=== PATIENT | male | born 1935 | race African-American/Black ===

== ENCOUNTER 2023-10-16 20:15 | Inpatient (IN) | payer OTHER, SELFPAY ==
[2023-10-16] VITALS (18 sets, daily range): BP systolic 95–147; BP diastolic 47–97; BMI 28.5
[2023-10-16 17:57] LABS: Glucose - Point of Care 225 mg/dl (70-99)
--- NOTE | 2023-10-16 18:17 | ED.GENMED ---
History of Present Illness
<Ayush Briggs DO - Last Filed: 10/16/23 19:35>
General
Chief Complaint: Weakness
Time Seen by Provider: 10/16/23 18:04
Travel History
Have you had any contact with someone who has COVID-19?: No
Do you have any symptoms of coronavirus? Fever > 100 degrees, chills, cough, shortness of breath, sore throat, loss of taste or smell, muscle aches, or headache?: No
<Bindu Mandel, FLEET OPERATIONS MANAGER - Last Filed: 10/18/23 09:26>
General
Source: patient and custodial records
Exam Limitations: none
Nursing documentation reviewed up to this point in time: agreed with
History of Present Illness
History of Present Illness:
87-year-old male from [facility] with history of quadruple bypass 2003, IDDM, PVD, states earlier today he was having the dry heaves, he finally vomited, he presents stating he feels 'so weak.' He denies chest pain or trouble breathing. He
denies nausea at this time. He had a loose stool. He denies any new local weakness in his extremities.
Patient is nonambulatory, wheelchair-bound at baseline.
Past History
<Bindu Mandel, FLEET OPERATIONS MANAGER - Last Filed: 10/18/23 09:26>
Past History
ED Past Medical History: CAD, GERD, HTN, IDDM, [place] and Psychiatric (depression)
ED Past Surgical History: Cardiac (quadruple bypass 2003 at [facility])
Social History
Tobacco: Non-smoker
Alcohol: None
Living: custodial
Review of Systems
<Bindu Mandel, FLEET OPERATIONS MANAGER - Last Filed: 10/18/23 09:26>
Review of Systems
Allergies reviewed?: Yes
All Other Systems: ROS reviewed and negative except as documented in HPI and ROS
Constitutional: Reports fatigue; Denies fever
Respiratory: Denies trouble breathing
Cardiac: Denies chest pain, diaphoresis, palpitations or syncope
ABD/GI: Reports nausea and vomiting; Denies abdominal pain, diarrhea, bloody stools or black stools
: Denies dysuria or difficulty voiding
Musculoskeletal: Denies edema
Skin: Reports no symptoms
Neurological: Reports headache (yesterday and today) and weakness (generalized)
Phy Exam
<Bindu Mandel, FLEET OPERATIONS MANAGER - Last Filed: 10/18/23 09:26>
Physical Exam
Physical Exam:
GENERAL: No acute distress. A&Ox3.
CONSTITUTIONAL: Afebrile.
EYES: PERRL, conjunctivae normal
Neck: Supple
ENMT: moist mucus membranes, Pharynx nl
RESPIRATORY: Regular respirations, nonlabored, lungs clear.
CARDIOVASCULAR: Regular rate and rhythm, no murmurs, no rubs.
GI: Soft, nontender, normal BS
MUSCULOSKELETAL: Moves with ease. Well perfused. No edema
SKIN: Warm, dry, pink
PSYCH: Normal mood and affect. Well kept, interactive and appropriate
NEUROLOGIC: Awake, alert and oriented. General weakness in extremities (chronic). No focal neurological deficits
Course
<Ayush Briggs, DO - Last Filed: 10/16/23 19:35>
Orders/Labs/Results
Orders:
Orders
10/16/23 Dinner
Clear Liquid
At Your Request: Full Participation
Does patient need a safe tray?: No
10/16/23 17:54
EKG [Electrocardiogram (*1)] Urgent
Reason for Study: Fatigue / Weakness
10/16/23 18:12
CBC/With Diff [Complete Blood Count/With Diff] Urgent
10/16/23 18:17
CR Chest Portable - 1 View Urgent
Comment:
Reason For Exam: vomiting
Reason Study Needs to be Portable: Patient Unstable
10/16/23 18:18
0.9% Sodium Chloride 1000 ml [Nss] 1,000 ml IV BOLUS
Ondansetron Injectable [Zofran] 4 mg IV NOW STA
10/16/23 18:23
0.9% Sodium Chloride 250 ml [Nss] 250 ml IV BOLUS
0.9% Sodium Chloride 500 ml [Nss] 500 ml IV BOLUS
0.9% Sodium Chloride 500 ml [Nss] 500 ml IV BOLUS
10/16/23 18:34
EKG [Electrocardiogram (*1)] Urgent
Reason for Study: Chest Pain
10/16/23 18:48
Comprehensive Metabolic Panel Urgent
Troponin I Urgent
10/16/23 19:09
Prothrombin Time Urgent
10/16/23 19:43
Aspirin Chewable [Low Strength Aspirin] 324 mg .ROUTE .[facility]
10/16/23 20:06
Admit/Transfer Patient As Directed
Co-Sign Provider:
Level of Care: Inpatient admission
Assign to:: Telemetry
Physician / Group: jeff
Diagnosis: gastroenteritis
Reason for Telemetry: Arrhythmia
Date to Stop Telemetry: 10/19/23
Time to Stop Telemetry: 11:00
Reason for Hospitalization: gastroenteritis
Expected length of stay greater than two midnights?: Yes
ELOS- Estimated Length of Stay in days: 2
I certify the patient meets the requirements for IP care: Yes
Code Status As Directed
Resuscitation Status: Full Code
10/16/23 20:11
CDIFF [C difficile Antigen & Toxins] Urgent
KEAGAN Source: Feces/Stool
Specimen Description:
Date Specimen was Collected: 10/17/23
Time Specimen was Collected: 05:04
Norovirus by PCR Urgent
KEAGAN Source: Feces/Stool
Specimen Description:
Date Specimen was Collected: 10/17/23
Time Specimen was Collected: 05:04
10/16/23 20:22
Blood Culture Q30M
KEAGAN Source: Blood/Venous
Specimen Description:
Blood Culture Q30M
KEAGAN Source: Blood/Venous
Specimen Description:
10/16/23 20:23
Urinalysis Urgent
Date Specimen was Collected: 10/16/23
Time Specimen was Collected: 20:20
Urine Culture Urgent
KEAGAN Source: Urine
Specimen Description:
Obtained by: Straight Cath
Date Specimen was Collected: 10/16/23
Time Specimen was Collected: 20:20
10/16/23 21:44
Troponin I Q6H
Acetaminophen [Tylenol] 650 mg PO Q4HPRN PRN
Dextrose 50%-Water [Dextrose 50% Syringe] 12.5 grams IV [id number] PRN
Glucagon [GlucaGen] 1 mg IM PRN PRN
Magnesium Hydroxide [Milk of Magnesia] 30 ml PO DAILY PRN
10/16/23 21:44
Activity As Directed
Activity Level: As Tolerated
Bedside Glucose Monitoring As Directed
Frequency: AC&HS
Additional Instructions:: Change to q6h if pt on TPN, tube feeding or not eating
Bladder Scan As Directed
Follow Bladder Retention/Intermittent Cath Algorithm?: Yes
PRN if no void in __ hours: 6
Frequency: Per Retention Algorithm
If Bladder Scan Result >: 400
then:: Straight cath
Straight Cath As Directed
Frequency: Per Retention Algorithm
Additional Instructions: straight cath as needed per acute urinary retention algorithm for 24 hrs
Additional Instructions: for bladder scan greater than 400 mL
Vital Signs As Directed
Frequency: Per unit guidelines
DX Deep Vein Thrombosis Video Routine
10/16/23 22:00
Atorvastatin [Lipitor] 80 mg PO HS
Tamsulosin [Flomax] 0.4 mg PO HS
10/17/23 07:11
Complete Blood Count/With Diff IN AM
Comprehensive Metabolic Panel IN AM
Glycohemoglobin (HgbA1c) IN AM
Troponin I Q6H
10/17/23 07:30
Insulin Aspart Corrective Low [Novolog Flexpen-Low Resistance] See Protocol SC AC
10/17/23 08:00
Aspirin 325 mg PO DAILY
Aspirin Chewable [Low Strength Aspirin] 81 mg PO DAILY
Carvedilol [Coreg] 12.5 mg PO BID
Cilostazol [Pletal] 100 mg PO BID
Gabapentin [Neurontin] 300 mg PO BID
Heparin 5,000 units SC Q12
Insulin Aspart/Asp Protamine [Novolog Mix 70/30 Flexpen] 22 units SC BID
Pantoprazole [Protonix] 40 mg PO DAILY
10/19/23 11:00
DC Protocol for Telemetry ONCE
Abnormal Lab Results
10/16/23 10/16/23 10/16/23
17:56 18:12 18:48
RBC 4.10 L 10^6/uL
(4.70-6.10)
Hgb 11.0 L g/dL
(13.0-18.0)
Hct 32.0 L %
(39.0-52.0)
MCV 78.0 L fL
(80.0-94.0)
MCH 26.8 L pg
(27.0-31.0)
RDW 15.4 H %
(11.5-14.5)
Abs Immat Gran (auto) 0.1 H 10^3/uL
(0-0.05)
Absolute Neuts (auto) 8.9 H 10^3/uL
(1.4-6.5)
Absolute Lymphs (auto) 1.0 L 10^3/uL
(1.2-3.4)
Absolute Monos (auto) 0.8 H 10^3/uL
(0.1-0.6)
Immature Gran % 0.6 H %
(0-0.5)
Neutrophils % 82.2 H %
(42.2-75.2)
Lymphocytes % 9.6 L %
(20.5-51.1)
PT
Chloride 111 H mmol/L
(98-107)
Carbon Dioxide 18 L mmol/L
(22-30)
BUN 25 H mg/dl
(9-20)
Creatinine 1.4 H mg/dL
(0.7-1.3)
Glucose 193 H mg/dl
(70-99)
Total Bilirubin 1.4 H mg/dl
(0.2-1.3)
AST 109 H U/L
(17-59)
ALT 94 H U/L
(0-50)
Albumin 3.1 L g/dl
(3.5-5.0)
POC Glucose 225 H mg/dl
(70-99)
10/16/23
19:09
RBC
Hgb
Hct
MCV
MCH
RDW
Abs Immat Gran (auto)
Absolute Neuts (auto)
Absolute Lymphs (auto)
Absolute Monos (auto)
Immature Gran %
Neutrophils %
Lymphocytes %
PT 16.7 H Sec
(11.4-14.6)
Chloride
Carbon Dioxide
BUN
Creatinine
Glucose
Total Bilirubin
AST
ALT
Albumin
POC Glucose
10/16/23 18:12
10/16/23 18:48
Vital Signs
Initial and Last Documented VS:
Initial Vital Signs
Pulse Resp Pulse Ox
82 18 97
10/16/23 17:56 10/16/23 17:56 10/16/23 17:56
Last Documented Vital Signs
Temp Pulse Resp BP Pulse Ox
98.2 F 88 18 155/78 99
10/18/23 07:45 10/18/23 07:50 10/18/23 07:45 10/18/23 07:50 10/18/23 07:45
<Bindu Mandel FLEET OPERATIONS MANAGER - Last Filed: 10/18/23 09:26>
Orders/Labs/Results
Orders:
Orders
10/16/23 Dinner
Clear Liquid
At Your Request: Full Participation
Does patient need a safe tray?: No
10/16/23 17:54
EKG [Electrocardiogram (*1)] Urgent
Reason for Study: Fatigue / Weakness
10/16/23 18:12
CBC/With Diff [Complete Blood Count/With Diff] Urgent
10/16/23 18:17
CR Chest Portable - 1 View Urgent
Comment:
Reason For Exam: vomiting
Reason Study Needs to be Portable: Patient Unstable
10/16/23 18:18
0.9% Sodium Chloride 1000 ml [Nss] 1,000 ml IV BOLUS
Ondansetron Injectable [Zofran] 4 mg IV NOW STA
10/16/23 18:23
0.9% Sodium Chloride 250 ml [Nss] 250 ml IV BOLUS
0.9% Sodium Chloride 500 ml [Nss] 500 ml IV BOLUS
0.9% Sodium Chloride 500 ml [Nss] 500 ml IV BOLUS
10/16/23 18:34
EKG [Electrocardiogram (*1)] Urgent
Reason for Study: Chest Pain
10/16/23 18:48
Comprehensive Metabolic Panel Urgent
Troponin I Urgent
10/16/23 19:09
Prothrombin Time Urgent
10/16/23 19:43
Aspirin Chewable [Low Strength Aspirin] 324 mg .ROUTE .[facility]
10/16/23 20:06
Admit/Transfer Patient As Directed
Co-Sign Provider:
Level of Care: Inpatient admission
Assign to:: Telemetry
Physician / Group: jeff
Diagnosis: gastroenteritis
Reason for Telemetry: Arrhythmia
Date to Stop Telemetry: 10/19/23
Time to Stop Telemetry: 11:00
Reason for Hospitalization: gastroenteritis
Expected length of stay greater than two midnights?: Yes
ELOS- Estimated Length of Stay in days: 2
I certify the patient meets the requirements for IP care: Yes
Code Status As Directed
Resuscitation Status: Full Code
10/16/23 20:11
CDIFF [C difficile Antigen & Toxins] Urgent
KEAGAN Source: Feces/Stool
Specimen Description:
Date Specimen was Collected: 10/17/23
Time Specimen was Collected: 05:04
Norovirus by PCR Urgent
KEAGAN Source: Feces/Stool
Specimen Description:
Date Specimen was Collected: 10/17/23
Time Specimen was Collected: 05:04
10/16/23 20:22
Blood Culture Q30M
KEAGAN Source: Blood/Venous
Specimen Description:
Blood Culture Q30M
KEAGAN Source: Blood/Venous
Specimen Description:
10/16/23 20:23
Urinalysis Urgent
Date Specimen was Collected: 10/16/23
Time Specimen was Collected: 20:20
Urine Culture Urgent
KEAGAN Source: Urine
Specimen Description:
Obtained by: Straight Cath
Date Specimen was Collected: 10/16/23
Time Specimen was Collected: 20:20
10/16/23 21:44
Troponin I Q6H
Acetaminophen [Tylenol] 650 mg PO Q4HPRN PRN
Dextrose 50%-Water [Dextrose 50% Syringe] 12.5 grams IV [id number] PRN
Glucagon [GlucaGen] 1 mg IM PRN PRN
Magnesium Hydroxide [Milk of Magnesia] 30 ml PO DAILY PRN
10/16/23 21:44
Activity As Directed
Activity Level: As Tolerated
Bedside Glucose Monitoring As Directed
Frequency: AC&HS
Additional Instructions:: Change to q6h if pt on TPN, tube feeding or not eating
Bladder Scan As Directed
Follow Bladder Retention/Intermittent Cath Algorithm?: Yes
PRN if no void in __ hours: 6
Frequency: Per Retention Algorithm
If Bladder Scan Result >: 400
then:: Straight cath
Straight Cath As Directed
Frequency: Per Retention Algorithm
Additional Instructions: straight cath as needed per acute urinary retention algorithm for 24 hrs
Additional Instructions: for bladder scan greater than 400 mL
Vital Signs As Directed
Frequency: Per unit guidelines
DX Deep Vein Thrombosis Video Routine
10/16/23 22:00
Atorvastatin [Lipitor] 80 mg PO HS
Tamsulosin [Flomax] 0.4 mg PO HS
10/17/23 07:11
Complete Blood Count/With Diff IN AM
Comprehensive Metabolic Panel IN AM
Glycohemoglobin (HgbA1c) IN AM
Troponin I Q6H
10/17/23 07:30
Insulin Aspart Corrective Low [Novolog Flexpen-Low Resistance] See Protocol SC AC
10/17/23 08:00
Aspirin 325 mg PO DAILY
Aspirin Chewable [Low Strength Aspirin] 81 mg PO DAILY
Carvedilol [Coreg] 12.5 mg PO BID
Cilostazol [Pletal] 100 mg PO BID
Gabapentin [Neurontin] 300 mg PO BID
Heparin 5,000 units SC Q12
Insulin Aspart/Asp Protamine [Novolog Mix 70/30 Flexpen] 22 units SC BID
Pantoprazole [Protonix] 40 mg PO DAILY
10/19/23 11:00
DC Protocol for Telemetry ONCE
Abnormal Lab Results
10/16/23 10/16/23 10/16/23
17:56 18:12 18:48
RBC 4.10 L 10^6/uL
(4.70-6.10)
Hgb 11.0 L g/dL
(13.0-18.0)
Hct 32.0 L %
(39.0-52.0)
MCV 78.0 L fL
(80.0-94.0)
MCH 26.8 L pg
(27.0-31.0)
RDW 15.4 H %
(11.5-14.5)
Abs Immat Gran (auto) 0.1 H 10^3/uL
(0-0.05)
Absolute Neuts (auto) 8.9 H 10^3/uL
(1.4-6.5)
Absolute Lymphs (auto) 1.0 L 10^3/uL
(1.2-3.4)
Absolute Monos (auto) 0.8 H 10^3/uL
(0.1-0.6)
Immature Gran % 0.6 H %
(0-0.5)
Neutrophils % 82.2 H %
(42.2-75.2)
Lymphocytes % 9.6 L %
(20.5-51.1)
PT
Chloride 111 H mmol/L
(98-107)
Carbon Dioxide 18 L mmol/L
(22-30)
BUN 25 H mg/dl
(9-20)
Creatinine 1.4 H mg/dL
(0.7-1.3)
Glucose 193 H mg/dl
(70-99)
Total Bilirubin 1.4 H mg/dl
(0.2-1.3)
AST 109 H U/L
(17-59)
ALT 94 H U/L
(0-50)
Albumin 3.1 L g/dl
(3.5-5.0)
POC Glucose 225 H mg/dl
(70-99)
10/16/23
19:09
RBC
Hgb
Hct
MCV
MCH
RDW
Abs Immat Gran (auto)
Absolute Neuts (auto)
Absolute Lymphs (auto)
Absolute Monos (auto)
Immature Gran %
Neutrophils %
Lymphocytes %
PT 16.7 H Sec
(11.4-14.6)
Chloride
Carbon Dioxide
BUN
Creatinine
Glucose
Total Bilirubin
AST
ALT
Albumin
POC Glucose
10/16/23 18:12
10/16/23 18:48
Vital Signs
Initial and Last Documented VS:
Initial Vital Signs
Pulse Resp Pulse Ox
82 18 97
10/16/23 17:56 10/16/23 17:56 10/16/23 17:56
Last Documented Vital Signs
Temp Pulse Resp BP Pulse Ox
98.2 F 88 18 155/78 99
10/18/23 07:45 10/18/23 07:50 10/18/23 07:45 10/18/23 07:50 10/18/23 07:45
<Bindu Mandel, FLEET OPERATIONS MANAGER - Last Filed: 10/18/23 09:26>
MDM/Problems Addressed
Differential Diagnosis Includes:
TX, blocked bypass graft
MDM/Problems Addressed:
87-year-old male with history of quadruple bypass 2004, IDDM, PVD, states earlier today he was having the dry heaves, he finally vomited, he presents stating he feels 'so weak.' He denies chest pain or trouble breathing. He denies nausea at this
time. He had a loose stool. He denies any new local weakness in his extremities.
Patient is nonambulatory, wheelchair-bound at baseline.
EKG: Sinus with 1st degree block, abnormal ST elevation in anterior/inferior leads
Case discussed with Dr. Briggs who examined pt
Case discussed with Dr. Latham
Pt is Full Code
VSS but soft BP 102 systolic. IVFs infusing.
CBC with no clinically significant abnormality
CMP: BUN/creat 25/1.4 (nothing to compare) Mild elevation liver enzymes Glucose 225
Troponin: WNL.
EKG # 2 NSR, improved after IVFs and normalization of BP. Initial abnormality likely due to dehydration, hypotension
Plan: Admit: General weakness, trend troponin, check urine, hydrate
Hospitalist notified of admission
Chronic conditions affecting care: DM, HTN, CAD and PVD
<Ayush Briggs, - Last Filed: 10/16/23 19:35>
*Radiology
Radiology exam reviewed: radiology read reviewed
*Pulse Oximetry
Patient hypoxic: no
*Kettle Skimmer Interpretation
Rate: normal
Interpretation: normal
Heart Rate: 70
Rhythm: sinus
*Critical Care Note
Total Time (30-74mins, 75-104mins- exclusive of procedures): 44
ED Attending Note
<Ayush Briggs, - Last Filed: 10/16/23 19:35>
ED Attending Note
Patient seen and examined by attending physician: Yes
I performed the substantive portion of visit, reviewed & personally made and approve the management plan that is documented in note by myself or ANA.: Yes
ED Attending Note:
Seen with FLEET OPERATIONS MANAGER examined independently 79-year-old male with CAD status post bypass surgery 20 years ago presents with nausea dry heaves low blood pressure EKG shows looks to me to be inferior ST changes, patient denies any chest pain, he lives in a
custodial, gets around in a wheelchair he is wearing a depends type garment does not appear to be demented, will send labs start IV fluids this could be in for imi did review with interventional cardiology, we will get creatinine, troponin
hemoglobin try to discern patient and family's wishes
On reevaluation, after fluid and aspirin he states he is feeling better his blood pressures normalized as did his EKG
Update, patient feeling well now blood pressure in the 140s, did have some arm pain earlier per the son of though he has neuropathy he gets arm pain, son also concerned he could have UTIs with blood with trouble urinating, troponin hemoglobin
creatinine noted, repeat EKG shows no ST segment elevation, again not a candidate for urgent cardiac cath despite normalization of his symptoms, also decreased functional status and normalization of his EKG
-
Portions of this chart may have been created with voice recognition software.� Occasional wrong word or��sound alike� substitutions may have occurred due to the inherent limitations of voice recognition software.
Discharge Plan
Departure
Patient Disposition: Admit
Date of Disposition: 10/16/23
Time of Disposition: 20:02
Admit to: Telemetry
Presentation/result/management discussed w/ accepting MD/DO: Hospitalist
Condition: Good
Discharge Problem:
Generalized weakness
Interventions
Interventions:
*Risk Screen - Suicide Last Done: 10/16/23 17:57
*General Assessment Last Done: 10/16/23 17:57
*Neglect/Abuse Screening Last Done: 10/16/23 17:57
*ED COVID-19 Vaccine History Last Done: 10/16/23 19:12
*Nursing Disposition Last Done: 10/16/23 21:50
ED- Cardiac Assessment Last Done: 10/16/23 19:12
ED- Neurological Assessment Last Done: 10/16/23 19:12
ED- Pulmonary Assessment Last Done: 10/16/23 19:12
Discharge Date and Time
Discharge Date/Time: 10/16/23 21:50
[2023-10-16 18:21] LABS: % Basophils 0.1 % (0-2); % Eosinophils 0.1 % (0-6); % Immature Granulocytes 0.6 % (0-0.5); % Lymphocytes 9.6 % (20.5-51.1); % Monocytes 7.4 % (1.7-9.3); % Neutrophils 82.2 % (42.2-75.2); Absolute Immature Granulocytes 0.1 10^3/uL (0-0.05); Absolute Monocytes 0.8 10^3/uL (0.1-0.6); Absolute Neutrophils 8.9 10^3/uL (1.4-6.5); Mean Corp Hgb Conc. 34.4 g/dL (33.0-37.0); Mean Corpuscular Hgb 26.8 pg (27.0-31.0); Mean Platelet Volume 10.2 fL (7.4-10.4); Nucleated Red Blood Cells % 0 % (-); Platelet Count 313 10^3/uL (130-400); Red Cell Dist. Width 15.4 % (11.5-14.5); White Blood Cell Count 10.8 10^3/uL (4.8-10.8)
[2023-10-16] MEDS: NSS 1000 IV ×2 (18:53→22:27)
[2023-10-16 19:19] LABS: ALT (SGPT) 94 U/L (0-50); AST (SGOT) 109 U/L (17-59); Albumin 3.1 g/dl (3.5-5.0); Alkaline Phosphatase 105 U/L (38-126); Blood Urea Nitrogen 25 mg/dl (9-20); Carbon Dioxide 18 mmol/L (22-30); Chloride 111 mmol/L (98-107); Estimated Creatinine Clearance 40 ml/min; Glucose 193 mg/dl (70-99); Potassium 3.7 mmol/L (3.5-5.1); Sodium 136 mmol/L (135-145); Total Bilirubin 1.4 mg/dl (0.2-1.3); Total Protein 6.9 g/dl (6.3-8.2); Troponin I 0.021 ng/ml; eGFR 48.34
[2023-10-16 19:25] LABS: INR 1.37; PT 16.7 Sec (11.4-14.6)
--- NOTE | 2023-10-16 20:12 | HPS.HSE ---
Addendum entered and electronically signed by Gideon Salmon MD 10/16/23 22:19:
Started ceftriaxone for UTI.
Original Note:
Family Physician
-
Family Physician: Antonino Dodson
Chief Complaint
-
vomiting, diarrhea
History of Present Illness
87-year-old male past medical history of CAD status post quadruple bypass in 2003, peripheral vascular disease, hypertension, GERD, diabetes, diabetic neuropathy, neurogenic bladder, depression, presenting with dry heaving with some vomiting and
severe diarrhea starting today. He denies any abdominal pain. He did have chills and temperature of 99 over the past few days. He denies eating any restaurant food or outside food. He denies any chest pain or shortness of breath.
Patient has neurogenic bladder and sometimes has urge to go to the bathroom sometimes. His son tried putting a condom catheter on him a few days ago to help with urinary collection. The condom catheter was on for only 6 hours but afterwards
patient developed penile pain and subsequent lesions on the penis with mild bleeding. Patient has been applying zinc cream. Condom catheter was subsequently never attempted again. Son also noted some possibly cloudy and dark urine. Patient
denies any pain with urination.
Medical History
Past Medical History
Past Medical History: Reports Other ( CAD status post quadruple bypass in 2003, peripheral vascular disease, hypertension, GERD, diabetes, diabetic neuropathy, neurogenic bladder, depression)
Past Surgical History: Reports None
Social History
Tobacco: Non-smoker
Alcohol: None
Drug: None
Family History
Family History: Not pertinent
Allergies / Home Medications
Allergies reflects when Allergies were last updated in [facility].
Home Medications with original date entered in [facility]
Allergy/Medication List:
Allergies
Allergy/AdvReac Type Severity Reaction Status Date / Time
Penicillins Allergy Hives Verified 10/16/23 17:56
Home Medications
acetaminophen 325 mg tablet 650 mg PO Q4H PRN mild pain/temp>100f 10/16/23
aspirin 81 mg capsule 81 mg PO DAILY 10/16/23
phopcha-ywobvilczqlgy-utbxmhin 250 mg-250 mg-65 mg tablet (Excedrin Extra Strength) 2 tab PO Q6H PRN mild pain 10/16/23
atorvastatin 80 mg tablet 80 mg PO HS 10/16/23
bisacodyl 10 mg rectal suppository (Dulcolax (bisacodyl)) 10 mg MT DAILY PRN if mom is ineffective after 24hrs 10/16/23
carvedilol 12.5 mg tablet 12.5 mg PO BID 10/16/23
cilostazol 100 mg tablet 100 mg PO BID 10/16/23
colesevelam 625 mg tablet 1,875 mg PO BID 10/16/23
gabapentin 600 mg tablet 600 mg PO BID 10/16/23
insulin aspar prot-insulin aspart 100 unit/mL (70-30) subcutaneous pen (Novolog Mix 70-30FlexPen U-100) 22 unit SC BID 10/16/23
lisinopril 2.5 mg tablet 2.5 mg PO DAILY 10/16/23
magnesium hydroxide 400 mg/5 mL oral suspension (Milk of Magnesia) 30 ml PO DAILY PRN if no bm in 3 days 10/16/23
pantoprazole 40 mg tablet,delayed release 40 mg PO DAILY 10/16/23
sodium phosphates 19 gram-7 gram/118 mL enema (Fleet Enema) 118 ml MT DAILY PRN if dulcolax is ineffective after 24hrs 10/16/23
tamsulosin 0.4 mg capsule 0.4 mg PO HS 10/16/23
Review of Systems
-
History Source: Patient
A 12 point ROS was completed and negative except as noted: Yes
Constitutional: Reports No Symptoms
EENT: Reports No Symptoms
Respiratory: Reports No Symptoms
Cardiac: Reports No Symptoms
Abdomen/GI: Reports See HPI
: Reports No Symptoms
Musculoskeletal: Reports No Symptoms
Skin: Reports No Symptoms
Neurological: Reports No Symptoms
Endocrine: Reports No Symptoms
Hematologic/Lymphatic: Reports No Symptoms
Psych: Reports No Symptoms
Physical Exam
Vital Signs
Vital Signs
Temp Pulse Resp BP Pulse Ox
98.8 F 87 25 140/62 96
10/16/23 17:57 10/16/23 19:00 10/16/23 19:00 10/16/23 19:00 10/16/23 19:00
Physical Exam
General: Well Developed, Well Nourished and No Apparent Distress
HEENT: NormoCephalic, Moist mucous membranes and Atraumatic
Respiratory: Clear
Cardiac: S1/S2 and Regular Rhythm; No Murmur or Rub
GI: Soft, Non Tender, Non Distended and Normal Bowel Sounds; No Organomegaly
Rectal: Deferred by Provider
Musculoskeletal: No Clubbing, No Cyanosis and No Edema
Skin: No Rash
Neuro: Nonfocal/grossly intact
Laboratory Results
-
10/16/23 18:12
10/16/23 18:48
Laboratory Results
PT 16.7 Sec (11.4-14.6) H 10/16/23 19:09
INR 1.37 10/16/23 19:09
Total Bilirubin 1.4 mg/dl (0.2-1.3) H 10/16/23 18:48
AST 109 U/L (17-59) H 10/16/23 18:48
ALT 94 U/L (0-50) H 10/16/23 18:48
Alkaline Phosphatase 105 U/L (38-126) 10/16/23 18:48
Troponin I Cancelled 10/16/23 18:49
Data Reviewed
-
Lab Data: Labs Reviewed by me
Old Records: Reviewed
Impression/Plan
-
IMPRESSION:
PLAN:
# Hypotension secondary to acute gastroenteritis
-Hold lisinopril
-IV fluids given
-Check stool culture, C. difficile, norovirus
-Clear liquid diet
# EKG changes likely secondary to hypotension in the setting of underlying CAD
# History of CAD status post quadruple bypass in 2003
-No chest pain
-Initial EKG showed ST elevations in leads II, 3, aVF with some improvement with IV fluids
-Troponin 0.021, continue to trend
-Continue aspirin, statin
-Continue Coreg
-Cardiology aware
# Acute kidney injury
-Creatinine of 1.4, no prior baseline
# Penile excoriations secondary to condom catheter likely latex allergy
-Continue topical zinc gel
# Possible UTI
# History of neurogenic bladder secondary to diabetes
-Check urinalysis
-Bladder scan protocol
-Continue tamsulosin
# Transaminitis unclear chronicity
-Continue to monitor
Peripheral vascular disease
-Continue cilostazol
Essential hypertension
-Hold lisinopril
GERD
-Continue Protonix
Type 2 diabetes
-Continue NovoLog 70�30, 22 units twice daily
-Insulin sliding scale
HLD
-continue colesevelam
Diabetic neuropathy
-Continue gabapentin
Depression
Full code
DVT prophylaxis�heparin
Clear liquids
[2023-10-16 20:40] LABS: Urine Albumin 1+ (Neg - Trace); Urine Bilirubin 1+ (Negative); Urine Character Very Cloudy (Clear); Urine Color Yellow; Urine Glucose Negative (Negative); Urine Ketone Trace (Negative); Urine Leukocyte 2+ (Negative); Urine Nitrite Positive (Negative); Urine Occult Blood 3+ (Negative); Urine Urobilinogen Negative (Neg - 1+)
[2023-10-16 20:48] LABS: Urine Squamous Cell 0-2 /LPF (Few)
[2023-10-16 20:50] LABS: Urine Bacteria Many (Negative); Urine White Cell 90-100 /HPF (0-5)
[2023-10-16] MEDS: FLOMAX 0.400000000000000022 MG PO (22:30)
[2023-10-16] MEDS: TYLENOL 650 MG PO (22:30)
[2023-10-16] MEDS: LIPITOR 80 MG PO (22:30)
[2023-10-16] MEDS: STERILE WATER FOR INJECTION 10 ML IV (22:49)
[2023-10-16] MEDS: ROCEPHIN 1000 MG IV (22:49)
--- NOTE | 2023-10-16 23:00 | PTCARENOTE ---
no delay received. aaox3. nsr on monitor. vss. nss @80cc/hr. rocephin admin. +3 scrotal edema. call lópez in reach. will monitor.
[2023-10-16] MEDS: ZINC OXIDE OINTMENT 1 APPLIC TOPICAL (23:10)
[2023-10-17 03:38] LABS: Troponin I 0.016 ng/ml
[2023-10-17 03:45] VITALS: BP 135/72
[2023-10-17 06:02] VITALS: BP 172/78
--- NOTE | 2023-10-17 06:36 | DOWNTIME ---
There was a [employer] Downtime on 10/17/2023 from 0100 to 10/17/2023 at 0337. Downtime documentation of patient's care, including medication administrations, has been reconciled in the electronic record per guidelines. Refer to the
patient's paper chart under the miscellaneous tab to see printed paper medication records and downtime forms.
[2023-10-17 07:00] VITALS: BP 153/81
[2023-10-17 07:22] LABS: % Basophils 0.3 % (0-2); % Eosinophils 0.5 % (0-6); % Immature Granulocytes 0.5 % (0-0.5); % Lymphocytes 11.6 % (20.5-51.1); % Monocytes 8.1 % (1.7-9.3); Absolute Eosinophils 0.1 10^3/uL (0-0.7); Absolute Immature Granulocytes 0.1 10^3/uL (0-0.05); Absolute Lymphocytes 1.3 10^3/uL (1.2-3.4); Absolute Monocytes 0.9 10^3/uL (0.1-0.6); Absolute Neutrophils 8.6 10^3/uL (1.4-6.5); Hemoglobin 10.4 g/dL (13.0-18.0); Mean Corp Hgb Conc. 32.5 g/dL (33.0-37.0); Mean Corpuscular Hgb 26.4 pg (27.0-31.0); Mean Corpuscular Volume 81.2 fL (80.0-94.0); Mean Platelet Volume 9.8 fL (7.4-10.4); Nucleated Red Blood Cells % 0 % (-); Platelet Count 276 10^3/uL (130-400); Red Blood Cell Count 3.94 10^6/uL (4.70-6.10); Red Cell Dist. Width 15.1 % (11.5-14.5); White Blood Cell Count 10.9 10^3/uL (4.8-10.8)
--- NOTE | 2023-10-17 07:32 | CON.CAR ---
Addendum entered and electronically signed by Yash Meng MD 10/17/23 12:17:
I saw and examined the patient.
The Auto Washer's note was reviewed and I agree with the note.
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
Initial ECG was read as cannot rule out inferior infarct and cardiology is consulted for evaluation
Patient is not reporting any chest discomfort to me
Troponin has been within normal range
Telemetry shows normal sinus rhythm
Transthoracic echocardiogram performed this morning with preserved LV function and no regional wall motion abnormalities
Stable cardiac status, we will sign off, please recall as needed
Should follow-up with his primary tunneller Dr. Vasquez at [facility] as scheduled
Original Note:
Consultation
Consultation Request
Date/Time Consultation Performed: 10/17/23
Requesting Provider: Dr. Martin
Performing Provider: Vira Costello PA-C for Dr. Meng
Reason for Consultation: abnormal EKG
Medical History
-
Chief Complaint: N/V
History of Present Illness:
Patient is an 87 yo temporary resident of [facility] (he and are there while their son who is their primary caregiver is hospitalized) with PMH of CAD s/p CABG x4 at [facility] in 2003, HTN, HLD, DM2 with diabetic neuropathy, GERD, PVD,
neurogenic bladder who presented to with complaints of N/V/D as well as weakness. He states since a fall in 05/2023, he has been essentially wheelchair bound. He reports some chills and low grade temps at CT. Denies abd pain, CP, SOB. He is being
treated for acute gastroenteritis and UA is also abnormal with concern for UTI. Cardiology consulted due to abnormal EKG. Trops 0.021, 0.016. No prior EKGs for comparison. He follows with Dr. Vasquez of [facility] and states he is seen every 6 months.
PMH:
CAD s/p CABG x4 at [facility]
HTN
HLD
DM2 with diabetic neuropathy
GERD
PVD
neurogenic bladder
fall 05/2023 with subsequent ambulatory dysfunction
Past Medical History
Past Medical History: Other (in HPI)
Social History
Tobacco: Non-Smoker
Alcohol: None
Personal:
Living: Assisted (at present)
Allergies / Home Medications
Allergy/AdvReac Type Severity Reaction Status Date / Time
Penicillins Allergy Hives Verified 10/16/23 17:56
�Medication �Instructions �Recorded �Confirmed �Type
acetaminophen 325 mg tablet 650 mg PO Q4H PRN mild 10/16/23 10/16/23 History
pain/temp>100f
aspirin 81 mg capsule 81 mg PO DAILY 10/16/23 10/16/23 History
ptcdvrk-sjscojbygsqff-wyotszfr 250 2 tab PO Q6H PRN mild pain 10/16/23 10/16/23 History
mg-250 mg-65 mg tablet (Excedrin
Extra Strength)
atorvastatin 80 mg tablet 80 mg PO HS 10/16/23 10/16/23 History
bisacodyl 10 mg rectal suppository 10 mg WA DAILY PRN if mom is 10/16/23 10/16/23 History
(Dulcolax (bisacodyl)) ineffective after 24hrs
carvedilol 12.5 mg tablet 12.5 mg PO BID 10/16/23 10/16/23 History
cilostazol 100 mg tablet 100 mg PO BID 10/16/23 10/16/23 History
colesevelam 625 mg tablet 1,875 mg PO BID 10/16/23 10/16/23 History
gabapentin 600 mg tablet 600 mg PO BID 10/16/23 10/16/23 History
insulin aspar prot-insulin aspart 22 unit SC BID 10/16/23 10/16/23 History
100 unit/mL (70-30) subcutaneous
pen (Novolog Mix 70-30FlexPen
U-100)
lisinopril 2.5 mg tablet 2.5 mg PO DAILY 10/16/23 10/16/23 History
magnesium hydroxide 400 mg/5 mL 30 ml PO DAILY PRN if no bm in 3 10/16/23 10/16/23 History
oral suspension (Milk of Magnesia) days
pantoprazole 40 mg tablet,delayed 40 mg PO DAILY 10/16/23 10/16/23 History
release
sodium phosphates 19 gram-7 118 ml WA DAILY PRN if dulcolax is 10/16/23 10/16/23 History
gram/118 mL enema (Fleet Enema) ineffective after 24hrs
tamsulosin 0.4 mg capsule 0.4 mg PO HS 10/16/23 10/16/23 History
Review of Systems
-
History Source: Patient
All other systems: Negative unless noted
Physical Exam
Vital Signs
Temp Pulse Resp BP Pulse Ox
98.0 F 60 20 172/78 99
10/17/23 03:45 10/17/23 06:02 10/17/23 03:45 10/17/23 06:02 10/17/23 03:45
Lab Results
Troponin I 0.016 ng/ml 10/17/23 00:40
Physical Exam
General: No Apparent Distress and Comfortable
HEENT: Normocephalic, Anicteric and Moist Mucous Membranes
Respiratory: Clear and Non Labored Respirations
Cardiac: S1/S2 and Regular Rhythm
GI: Soft, Non Tender, Non Distended and Normal Bowel Sounds
Musculoskeletal: No Clubbing, No Cyanosis and No Edema
Skin: Warm and Dry
Neuro: AO x 3
Impression / Plan
-
Primary Manufacturing Engineer Paint: Dr. Vasquez of [facility]
Assessment:
Weakness
N/V/D, presumed secondary to acute gastroenteritis
Hypotension
PEMA/Dehydration
Abnormal UA
Abnormal EKG
CAD s/p CABG x4 at OSH
HTN
HLD
DM2 with diabetic neuropathy
GERD
PVD
neurogenic bladder
fall 05/2023 with subsequent ambulatory dysfunction
Penile excoriations secondary to recent condom catheter use
Elevated LFTs
Plan:
-Patient presents with weakness and N/V/D
-treatment of UTI and gastroenteritis per primary service
-cardiology consulted due to abnormal EKG - with ST abnormality in II, III, aVF without resultant reciprocal changes noted. no CP. trop 0.021, 0.016. ? hypotension related
-check echo
-obtain records
-continue asa, coreg
-holding lisinopril with PEMA on arrival
-holding statin with elevated LFTs
-PT/OT
-d/w nursing, hospitalist
Data Reviewed
-
EKG: Tracing Personally Visualized and interpreted
Labs: Labs Reviewed by me
Old Records: Reviewed
[2023-10-17 07:42] LABS: ALT (SGPT) 168 U/L (0-50); AST (SGOT) 248 U/L (17-59); Albumin 2.9 g/dl (3.5-5.0); Alkaline Phosphatase 109 U/L (38-126); Blood Urea Nitrogen 26 mg/dl (9-20); Calcium 8.7 mg/dl (8.4-10.2); Carbon Dioxide 20 mmol/L (22-30); Chloride 114 mmol/L (98-107); Estimated Creatinine Clearance 55 ml/min; Glucose 144 mg/dl (70-99); Sodium 139 mmol/L (135-145); Total Bilirubin 1.2 mg/dl (0.2-1.3); Total Protein 6.6 g/dl (6.3-8.2); eGFR > 60.00
[2023-10-17 07:46] LABS: Troponin I 0.014 ng/ml
[2023-10-17] MEDS: PLETAL 100 MG PO ×2 (07:49→20:37)
[2023-10-17] MEDS: PROTONIX 40 MG PO (07:49)
[2023-10-17] MEDS: LOW STRENGTH ASPIRIN 81 MG PO (07:49)
[2023-10-17] MEDS: COREG 12.5 MG PO ×2 (07:49→20:37)
[2023-10-17] MEDS: NEURONTIN 300 MG PO ×2 (07:49→20:37)
[2023-10-17] MEDS: ZINC OXIDE OINTMENT 1 APPLIC TOPICAL ×3 (07:50→21:50)
[2023-10-17] MEDS: HEPARIN 5000 UNITS SC ×2 (07:56→20:37)
[2023-10-17] MEDS: NOVOLOG MIX 70/30 FLEXPEN 22 UNITS SC ×2 (07:59→20:38)
[2023-10-17] MEDS: NOVOLOG FLEXPEN-LOW RESISTANCE SC (07:59)
[2023-10-17 08:00] LABS: Glucose - Point of Care 140 mg/dl (70-99)
--- NOTE | 2023-10-17 09:44 | W.PN.HOSP.TC ---
Today's Communication/Plan
-
see outlined plan
Assessment / Plan
Assessment / Plan
Assessment:
Hypotension
Dehydration with PEMA
- felt secondary to acute gastroenteritis
- hold BP meds/CONNOR
- BP improved with IVF
- Cr improved with IVF
acute gastroenteritis
- stool studies are pending
- on clears; advance to full liquids
EKG changes likely secondary to hypotension in the setting of underlying CAD
History of CAD status post quadruple bypass in 2003
- No chest pain
- Initial EKG showed ST elevations in leads II, 3, aVF with some improvement with IV fluids
- trops slightly detectable but not up-trending
- check Echo
- obtain records from [facility]
- continue Coreg/ASA
- hold statin due to high LFTs
- DCA Cards following
Penile excoriations secondary to condom catheter likely latex allergy
- continue topical zinc gel
Complicated UTI in male with recent condom cath usage
History of neurogenic bladder secondary to diabetes
- BS/SC protocol
- continue Flomax
- continue Rocephin pending culture
Transaminitis, acute vs chronic
- trend LFTs, might be related to shock in setting of hypotension
- hold Statin
Peripheral vascular disease
- continue cilostazol
Essential hypertension
- hold lisinopril
GERD
- continue Protonix
Type 2 diabetes
- continue NovoLog 70�30, 22 units twice daily
- insulin sliding scale
- outpatient k 12 principal follow up (hx of cataracts)
HLD
- continue colesevelam
- hold statin due to high LFTs
Diabetic neuropathy
- continue gabapentin
Depression
Hx of Fall 3 months ago with resultant ambulatory dysfunction
- patient reports low back, hip and knee pains, shoulders bilaterally - X-rays pending
- PT/OT
DVT ppx: SC heparin
Code: Full
Anticipated Discharge: > 48 hours
Subjective/Interval History
-
Date of Service: October 17, 2023
feels less fatigued today
BP more improved
Objective Data
-
Labs:
Laboratory Results
10/17/23
07:11
WBC 10.9 H
Hgb 10.4 L
Hct 32.0 L
Plt Count 276
Sodium 139
Potassium 4.0
Chloride 114 H
Carbon Dioxide 20 L
BUN 26 H
Creatinine 0.9
Glucose 144 H
Calcium 8.7
Total Bilirubin 1.2
AST 248 H
ALT 168 H
Alkaline Phosphatase 109
Vital Signs:
Vital Signs
Temp Pulse Resp BP Pulse Ox
98.1 F 91 20 153/81 99
10/17/23 07:00 10/17/23 07:49 10/17/23 07:00 10/17/23 07:49 10/17/23 07:00
Physical Exam
-
General: No Apparent Distress
HEENT: Normocephalic and Atraumatic
Respiratory: Negative Wheezes
Cardiac: Regular Rhythm and S1/S2
GI: Soft
Genito-urinary: No Costovertebral Tender
Neuro: AO x 3
Psych: Calm
Data Reviewed
-
Total Time Spent with Patient (in minutes): 44
Labs: Labs Reviewed by me
[2023-10-17] MEDS: NSS 1000 IV (12:44)
[2023-10-17 12:57] LABS: Glucose - Point of Care 239 mg/dl (70-99)
[2023-10-17] MEDS: NOVOLOG FLEXPEN-LOW RESISTANCE 2 UNITS SC ×2 (14:00→17:52)
[2023-10-17 14:26] LABS: Glycohemoglobin (HgbA1c) 6.7 % (4.0-5.6)
[2023-10-17 15:00] VITALS: BP 154/72
[2023-10-17 15:21] LABS: Glucose - Point of Care 188 mg/dl (70-99)
--- NOTE | 2023-10-17 15:52 | CM ---
Met with patient at bedside and spoke with primary contact/sonRomero # [phone] via phone; initial assessment completed
Pharmacy verified: [facility], [address] [facility], [place]
Patient and his live in a [place] with his and son/primary caregiver, Adriel, in [place], [place]
Adriel is currently in the hospital, scheduled for surgery this week.
Patient and his 85 yr ol were admitted to [facility] for Respite Care (private pay) until sonBertin, is well enough; and able to care for them in the home
PLOF:
Patient needs assistance with personal care; per son, Romero, he is having trouble feeding himself
In the home, patient and son, Romero, reported that he was able to stand with walker and pivot from bed to commode or wheelchair with assistance
Patient has an electric scooter; also has portable Ramps to facilitate getting in/out of the house
Attending has ordered PT/OT evaluations
If Skilled Rehab is recommended, son, Romero, is agreeable with father returning to [facility] for skilled rehab;
Son made aware that SNF Referral will need to be submitted and if accepted, Insurance AUTH will be needed for a skilled rehab bed @ [facility]
Discharge plan to be determined pending PT/OT recommendation. CM will continue to monitor and coordinate needs
[2023-10-17 17:52] LABS: Glucose - Point of Care 220 mg/dl (70-99)
[2023-10-17 19:36] VITALS: BP 139/68
[2023-10-17 20:49] LABS: Glucose - Point of Care 199 mg/dl (70-99)
[2023-10-17] MEDS: FLOMAX 0.400000000000000022 MG PO (21:48)
[2023-10-17] MEDS: STERILE WATER FOR INJECTION 10 ML IV (21:49)
[2023-10-17] MEDS: ROCEPHIN 1000 MG IV (21:49)
[2023-10-17] MEDS: TYLENOL 650 MG PO (21:50)
[2023-10-17 23:25] VITALS: BP 124/68
[2023-10-18] VITALS (8 sets, daily range): BP systolic 92–158; BP diastolic 57–86; PULSE 83
[2023-10-18] MEDS: NSS 1000 IV (01:44)
[2023-10-18 06:29] LABS: Hematocrit 29.9 % (39.0-52.0); Mean Corp Hgb Conc. 33.4 g/dL (33.0-37.0); Mean Corpuscular Hgb 26.4 pg (27.0-31.0); Mean Corpuscular Volume 78.9 fL (80.0-94.0); Platelet Count 297 10^3/uL (130-400); Red Blood Cell Count 3.79 10^6/uL (4.70-6.10); Red Cell Dist. Width 15.3 % (11.5-14.5); White Blood Cell Count 6.5 10^3/uL (4.8-10.8)
[2023-10-18] MEDS: ZINC OXIDE OINTMENT 1 APPLIC TOPICAL (07:48)
[2023-10-18] MEDS: HEPARIN 5000 UNITS SC ×2 (07:50→20:35)
[2023-10-18] MEDS: PROTONIX 40 MG PO (07:50)
[2023-10-18] MEDS: NEURONTIN 300 MG PO ×2 (07:50→20:36)
[2023-10-18] MEDS: LOW STRENGTH ASPIRIN 81 MG PO (07:50)
[2023-10-18] MEDS: NOVOLOG MIX 70/30 FLEXPEN 22 UNITS SC ×2 (07:50→20:42)
[2023-10-18] MEDS: PLETAL 100 MG PO ×2 (07:50→20:36)
[2023-10-18] MEDS: COREG 12.5 MG PO ×2 (07:50→20:35)
[2023-10-18 07:52] LABS: ALT (SGPT) 396 U/L (0-50); AST (SGOT) 708 U/L (17-59); Albumin 2.6 g/dl (3.5-5.0); Alkaline Phosphatase 159 U/L (38-126); Blood Urea Nitrogen 17 mg/dl (9-20); Calcium 8.6 mg/dl (8.4-10.2); Carbon Dioxide 20 mmol/L (22-30); Chloride 115 mmol/L (98-107); Estimated Creatinine Clearance 71 ml/min; Glucose 90 mg/dl (70-99); Potassium 3.8 mmol/L (3.5-5.1); Sodium 139 mmol/L (135-145); eGFR > 60.00
[2023-10-18] MEDS: NOVOLOG FLEXPEN-LOW RESISTANCE SC ×2 (07:54→11:36)
[2023-10-18 08:03] LABS: Glucose - Point of Care 100 mg/dl (70-99)
--- NOTE | 2023-10-18 10:44 | CON.ID ---
Consultation
-
Date/Time Consultation Requested: October 18, 2023 1000
Date/Time Consultation Performed: October 18, 2023 1045
Requesting Provider: Erika Christianson
Performing Provider: Dr. Shellie Theodore
Reason for Consultation: UTI; bacteremia
Chief Complaint / Past History
Chief Complaint
Weakness, vomiting, diarrhea
History of Present Illness
87-year-old male with a history of diabetes mellitus, neuropathy, CAD, BPH, ambulatory dysfunction since his fallMay 2023, currently staying at [facility] temporarily for the past week who developed acute onset of nausea, vomiting and
profuse diarrhea on 10/16/23. He felt weak. Had chills. He was sent to the ER the same day. BP in the mid 90's. LFT's elevated. C. diff neg. UA + pyuria. He was started on ceftriaxone for UTI. Admission blood cx's x 2 GPC clusters. He denies
eating outside. He ate [facility] food. No one else sick. No abdominal pain. Diarrhea resolved today. No further nausea. He still feels very weak. Neurogenic bladder is listed in the medical history, but patient never had Huntley nor
catheterized for urine. Just before he went to the [facility], his son tried using condom catheter for the first time. It worked the first day, however the next day he developed painful penis and when the condom catheter was removed, there were
excoriations on his penis. He did not have dysuria prior to admission. He now reports some dysuria in the hospital. No flank pain. No ill contacts.
Past History
Additional Past Medical History:
Diabetes mellitus
Peripheral neuropathy
Hypertension
CAD status post CABG x 4
PAD
? Neurogenic bladder - does not self-cath
BPH
Depression
Ambulatory dysfunction since 05/2023
Right total knee replacement
L3-L5 fusion
Cervical fusion
Allergy History:
Penicillins Allergy (Verified 10/16/23 17:56)
Hives
Medications Reviewed: Yes
Current Antibiotics:
Ceftriaxone
Vancomycin�not yet given
Social History
Tobacco: Non-Smoker
Alcohol: None
Drug: None
Personal:
Living: Long-Term (Temporary resident at [facility])
Family History
Family History: Not Pertinent
Review of Systems
Review of Systems
General: Chills and Change in Appetite
HEENT: Headache (yesterday); Negative Stiff Neck, Sinus Problems or Pharyngitis
Cardiovascular: Negative Chest Pain or Dyspnea
Respiratory: Negative Dyspnea or Cough
Genital / Urological: Negative Stones or Flank Pain
Endocrine: Weakness
Musculoskeletal: Negative Arthralgias
Skin / Hair / Nails: Negative Rash
Neurological: Negative Dizziness
All systems: All other systems were reviewed and were negative
Vital Signs
Temp Pulse Resp BP Pulse Ox
98.2 F 88 18 155/78 99
10/18/23 07:45 10/18/23 07:50 10/18/23 07:45 10/18/23 07:50 10/18/23 07:45
Physical Exam
Physical Exam
Constitutional: No Acute Distress
Eyes: No Conjunctival Hemorrhage and Sclera Anicteric
Pharynx: Benign
Oral: No Thrush
Cardiovascular: Regular Rate and S1/S2
Pulmonary: Clear
Gastrointestinal: Soft, Non Tender, Non Distended and Normal Bowel Sounds
Genito-Urinary: Negative Huntley or CVA Tenderness
Extremities: Edema
Musculoskeletal: Other (right knee without erythema/warmth/induration); Negative Spinal Tenderness
Neurological: AO x 3
Lab / Diagnostic Study Results
10/18/23 06:12
10/18/23 06:12
Abs Immat Gran (auto) 0.1 10^3/uL (0-0.05) H 10/17/23 07:11
Absolute Neuts (auto) 8.6 10^3/uL (1.4-6.5) H 10/17/23 07:11
Absolute Lymphs (auto) 1.3 10^3/uL (1.2-3.4) 10/17/23 07:11
Absolute Monos (auto) 0.9 10^3/uL (0.1-0.6) H 10/17/23 07:11
Absolute Basos (auto) 0.0 10^3/uL (0-0.2) 10/17/23 07:11
Immature Gran % 0.5 % (0-0.5) 10/17/23 07:11
Neutrophils % 79.0 % (42.2-75.2) H 10/17/23 07:11
Lymphocytes % 11.6 % (20.5-51.1) L 10/17/23 07:11
Monocytes % 8.1 % (1.7-9.3) 10/17/23 07:11
Eosinophils % 0.5 % (0-6) 10/17/23 07:11
Basophils % 0.3 % (0-2) 10/17/23 07:11
PT 16.7 Sec (11.4-14.6) H 10/16/23 19:09
INR 1.37 10/16/23 19:09
Urine WBC 90-100 /HPF (0-5) A 10/16/23 20:23
Ur Squamous Epith Cells 0-2 /LPF (Few) 10/16/23 20:23
Microbiology Results
Micro:
10/17/23 05:05 Salmonella/Shigella Culture - Pending
Feces/Stool Campylobacter Culture - Pending
Shiga Toxin Test - Final
No E. coli Shiga Toxin 1 or 2 detected.
10/16/23 20:23 Urine Culture - Preliminary
Urine Gram negative bacilli
10/16/23 20:22 Blood Culture - Preliminary
Blood/Venous Positive culture in progress
Gram Stain - Preliminary
10/16/23 20:22 Blood Culture - Preliminary
Blood/Venous Positive culture in progress
Gram Stain - Preliminary
10/17/23 05:05 C. difficile GDH Antigen & Toxins - Final
Feces/Stool Negative for toxigenic C.difficile
- Final
Negative for Norovirus GI and GII.
10/16/23 CXR: No acute disease of the chest.
10/17/23 Knee XRAY: No fracture or dislocation. Status post total knee replacement on the right. Anatomic alignment. Small joint effusion. Moderate degenerative joint disease of the left knee.
10/18/23 ABD US: The liver is normal in size, measuring 13.2 cm in length. It is normal in echogenicity. There is no focal hepatic lesion or intrahepatic biliary dilation. The gallbladder is physiologically distended with fluid and shows no shadowing
calculi or wall thickening. The common duct is normal, measuring 3 mm. The pancreas is nonvisualized. The spleen is normal in size and shows no focal abnormality. Survey evaluation of the kidneys shows no hydronephrosis. No free fluid is seen in
the abdomen. The proximal IVC and abdominal aorta are unremarkable. There is a tiny right pleural effusion. There is a small left pleural effusion.
Assessment / Plan
# GPC cluster bacteremia
-? contaminant
-Repeat blood cx's x 2 before Vancomycin administration
# GNR UTI
-Abd US no hydro
-Agree with bladder scan
-Continue ceftriaxone pending cx data.
# Gastroenteritis
-N/V/D resolved
- C. diff neg
- Stool cx pending
# Elevated transaminases trending up
- no Rivera sign
- Abd US unremarkable
-Trend LFT's
Care Review
Plan reviewed with: Physician (Dr. Lindsey Martin)
[2023-10-18 11:30] LABS: Glucose - Point of Care 135 mg/dl (70-99)
--- NOTE | 2023-10-18 12:04 | CON.MD ---
Consultation - Medical
-
see dictated note
pt admitted with fever and gi sx's
urologic hx + for xrt for prostate cancer thru [facility] (reports he was 'cured')- and ALSO IPP PLACEMENT by dr roche
maintained on flomax for some urgency and frequency
over last several months- some worsening urgency with leak
family got OTC condom cath- with first exchange noted penile pain/swelling and some ulceration with glans
on admit- had mild elevation of wbc
ucx is + for gram neg rods
blood cx's + for staph epi (? contam)
is still having some intermittency of stream- no hematuria
pvr 130cc
no sig penile swelling or erythema- but 2 superifical glans ulcers
IPP appears intact
plan
UTI- on rocephin- await cx's
double flomax dose and recheck pvr in am- given IPP and xrt- want to try and avoid catheter if at all possible
local wound care-antibx to penis- would not use condom cath going forward
will follow closely
check psa
--- NOTE | 2023-10-18 12:36 | CM ---
Case management following for d/c planning
Currently at [facility] for Respite Care
PT/OT recommending SNF
Spoke with pts salvador Jasso - Prefers referral sent to [facility]
Referral sent via care port
Will need auth
Plan - [facility] SNF when medically ready
--- NOTE | 2023-10-18 12:48 | W.PN.HOSP.TC ---
Today's Communication/Plan
-
continue IV Abx for UTI and bacteremia; ID following
Follow Urology/wound care recs for glans penis ulcerations
CT Shoulder to follow Xray finding
Assessment / Plan
Assessment / Plan
Assessment:
Hypotension
Dehydration with PEMA
- felt secondary to acute gastroenteritis
- hold BP meds/CONNOR
- BP improved with IVF
- Cr improved with IVF
acute gastroenteritis
- stool studies NGTD
- tolerating liquids; advance to regular diet
EKG changes likely secondary to hypotension in the setting of underlying CAD
History of CAD status post quadruple bypass in 2003
- No chest pain
- Initial EKG showed ST elevations in leads II, 3, aVF with some improvement with IV fluids
- trops slightly detectable but not up-trending
- Echo: EF 60%, mild LVH, mild to mod MR, mild TR
- obtain records from [facility]
- continue Coreg/ASA
- hold statin due to high LFTs
- DCA Cards signed off
Glans penis with 2 superficial ulcers from recent condom cath placement by family
- continue topical zinc gel for now; f/u Urology and wound care recs
Complicated gram negative UTI in male with recent condom cath usage
History of neurogenic bladder secondary to diabetes
- BS/SC protocol
- continue Flomax, double dose
- continue Rocephin pending culture
- ID and Urology following
Gram positive bacteremia
- in 2 initial bottles
- repeat blood cultures now then start Vancomycin (Vanco requires intensive monitoring)
- ID following
Transaminitis, acute vs chronic
- trend LFTs, might be related to shock in setting of hypotension
- hold Statin
- US Abdomen without acute pathology
Peripheral vascular disease
- continue cilostazol
Essential hypertension
- hold lisinopril
GERD
- continue Protonix
Type 2 diabetes
- continue NovoLog 70�30, 22 units twice daily
- insulin sliding scale
- diabetic diet
- outpatient coil placer follow up (hx of cataracts)
HLD
- hold colesevelam
- hold statin due to high LFTs
Diabetic neuropathy
- continue gabapentin
Depression
Hx of Fall 3 months ago with resultant ambulatory dysfunction
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 A faint area of lucency in the midportion of the glenoid
on the right may represent a nondisplaced fracture.
- Shoulder CT ordered
- Hip Xray: Degenerative joint disease with mild joint narrowing. No fracture or dislocation on either side.
- Knee Xray: Status post total knee replacement on the right. Anatomic alignment. Small joint effusion. Moderate degenerative joint disease of the left knee.
- L spine Xray: Moderate degenerative disk and joint disease in the lumbar spine. Scoliosis. Status post fusion L3-L5.
- PT/OT - SNF recommended
Hx of prostate cancer s/p XRT and IPP Placement ([facility])
- PSA pending
DVT ppx: SC heparin
Code: Full
Anticipated Discharge: > 48 hours
Subjective/Interval History
-
Date of Service: October 18, 2023
no new complaints
worked with PT/OT to chair today
Objective Data
-
Labs:
Laboratory Results
10/18/23
06:12
WBC 6.5
Hgb 10.0 L
Hct 29.9 L
Plt Count 297
Sodium 139
Potassium 3.8
Chloride 115 H
Carbon Dioxide 20 L
BUN 17
Creatinine 0.7
Glucose 90
Calcium 8.6
Total Bilirubin 1.0
AST 708 H*
ALT 396 H
Alkaline Phosphatase 159 H
Vital Signs:
Vital Signs
Temp Pulse Resp BP Pulse Ox
98.2 F 80 17 115/66 100
10/18/23 11:23 10/18/23 11:23 10/18/23 11:23 10/18/23 11:23 10/18/23 11:23
I&O
10/17/23 10/18/23 10/19/23
06:59 06:59 06:59
Intake Total 1650 / 1650
Output Total 450 / 450
Balance 1200 / 1200
Physical Exam
-
General: No Apparent Distress
HEENT: Normocephalic and Atraumatic
Respiratory: Negative Wheezes
Cardiac: Regular Rhythm and S1/S2
GI: Soft
Genito-urinary: No Costovertebral Tender
Neuro: AO x 3
Hematologic / Lymphatic: No Lymphadenopathy
Psych: Calm
Data Reviewed
-
Total Time Spent with Patient (in minutes): 51
Labs: Labs Reviewed by me
--- NOTE | 2023-10-18 12:57 | PHA.VAN.IN ---
Assessment
- Assessment
Renal Function: Unknown baseline (SCr trending down from admission 1.4-->0.9--0.7)
Concomitant Antimicrobials: ceftriaxone
AUC Dosing Plan
- Dosing Variables
Dosing Weight (kg): 85
Dosing CrCl (ml/min): 71
Vd coefficient (L/kg): 0.7
- Empiric Dosing
Initial / Loading Dose: 2000mg - administration pending
Maintenance Regimen: Vanc 1000mg Q12H starting 10/18 599
Estimated AUC (mcg*h/mL): 548
Estimated Peak (mcg*h/mL): 31.6
Estimated Trough (mcg/ml): 15.7
Estimated Half Life (H): 10.9
- Monitoring
No levels ordered at this time: consider levels in next few days
Pharmacokinetics Vancomycin I
- -
Patient Age: 87
Patient Sex: Male
Vancomycin Day #: 1
Indication: Bacteremia
Requesting Provider: Dr. Martin / Arben
Pertinent Antimicrobial Allergies:
penicillins - hives
Height / Weight:
Height 5 ft 8 in
Actual Weight 85.077 kg
- Vital Signs / Lab Results
Temp Pulse Resp BP Pulse Ox
98.2 F 80 17 115/66 100
10/18/23 11:23 10/18/23 11:23 10/18/23 11:23 10/18/23 11:23 10/18/23 11:23
Lab Results - Hematology
10/16/23 10/17/23 10/18/23
18:12 07:11 06:12
WBC 10.8 10.9 H 6.5
Lab Results - Chemistry
10/16/23 10/16/23 10/17/23
18:12 18:48 07:11
BUN Cancelled 25 H 26 H
Creatinine Cancelled 1.4 H 0.9
Estimated Creat Clear Cancelled 40 55
Albumin Cancelled 3.1 L 2.9 L
10/18/23
06:12
BUN 17
Creatinine 0.7
Estimated Creat Clear 71
Albumin 2.6 L
Lab Results - Urine
10/16/23
20:23
Urine Nitrite Positive A
Urine Nitrite (Reflex) Cancelled
Ur Leukocyte Esterase 2+ A
Leukocyte Esterase Rfl Cancelled
Urine WBC 90-100 A
Ur Squamous Epith Cells 0-2
Urine Bacteria Many A
Microbiology Results
10/16/23 20:22 Blood Culture - Preliminary
Blood/Venous Staphylococcus epidermidis
Gram Stain - Preliminary
10/17/23 05:05 Salmonella/Shigella Culture - Preliminary
Feces/Stool Culture in Progress
Campylobacter Culture - Preliminary
Culture in Progress
Shiga Toxin Test - Final
No E. coli Shiga Toxin 1 or 2 detected.
10/16/23 20:23 Urine Culture - Preliminary
Urine Gram negative bacilli
10/16/23 20:22 Blood Culture - Preliminary
Blood/Venous Positive culture in progress
Gram Stain - Preliminary
10/17/23 05:05 C. difficile GDH Antigen & Toxins - Final
Feces/Stool Negative for toxigenic C.difficile
- Final
Negative for Norovirus GI and GII.
[2023-10-18] MEDS: FLOMAX 0.800000000000000044 MG PO (12:59)
--- NOTE | 2023-10-18 14:14 | WOUNDNOTE ---
[facility] RN note: Patient admitted with UTI
See H&P for complete history.
PMH: CAD, DM, VT, impaired vision, depression.
Wound Location and type/assessment: Patient admitted with mechanical trauma from condom cath to glans penis. Per chart review, patient and RN report, patient was being cared for at home and family ordered condom cath. Instead of draining down,
catheter was positioned vertically causing skin irritation and possibly UTI. Patient reports that abrasions are already feeling better since admission, as skin has been kept dry and not in diaper. The wound beds are pink and dry with small areas of
scattered slough. Patient has poor mobility and poor appetite. Heels and sacrum intact.
Pressure redistribution devices in place: Versa [employer] Air
Plan: Open areas were cleaned and honey gel applied. A continence wrap was placed loosely around penis. Heels off-loaded on air cushion. Will continue to follow as needed. Will confirm orders with hospitalist and update nurse.
Updated care plan and will follow as needed.
[2023-10-18] MEDS: VANCOCIN 540 MG IV (14:38)
[2023-10-18] MEDS: ZINC OXIDE OINTMENT TOPICAL ×2 (15:19→22:13)
[2023-10-18 16:50] LABS: Glucose - Point of Care 200 mg/dl (70-99)
[2023-10-18] MEDS: NOVOLOG FLEXPEN-LOW RESISTANCE 2 UNITS SC (17:16)
[2023-10-18 20:46] LABS: Glucose - Point of Care 193 mg/dl (70-99)
[2023-10-18] MEDS: STERILE WATER FOR INJECTION 10 ML IV (22:08)
[2023-10-18] MEDS: ROCEPHIN 1000 MG IV (22:09)
[2023-10-19] VITALS (7 sets, daily range): BP systolic 129–171; BP diastolic 65–85
[2023-10-19] MEDS: VANCOCIN 200 IV (05:28)
[2023-10-19 06:29] LABS: Hematocrit 30.3 % (39.0-52.0); Hemoglobin 10.4 g/dL (13.0-18.0); Mean Corp Hgb Conc. 34.3 g/dL (33.0-37.0); Mean Corpuscular Hgb 26.9 pg (27.0-31.0); Mean Corpuscular Volume 78.3 fL (80.0-94.0); Platelet Count 319 10^3/uL (130-400); Red Blood Cell Count 3.87 10^6/uL (4.70-6.10); Red Cell Dist. Width 15.3 % (11.5-14.5); White Blood Cell Count 5.7 10^3/uL (4.8-10.8)
[2023-10-19 06:56] LABS: ALT (SGPT) 418 U/L (0-50); AST (SGOT) 621 U/L (17-59); Albumin 2.6 g/dl (3.5-5.0); Alkaline Phosphatase 204 U/L (38-126); Blood Urea Nitrogen 13 mg/dl (9-20); Calcium 8.4 mg/dl (8.4-10.2); Carbon Dioxide 24 mmol/L (22-30); Chloride 115 mmol/L (98-107); Estimated Creatinine Clearance 71 ml/min; Glucose 95 mg/dl (70-99); Potassium 3.5 mmol/L (3.5-5.1); Sodium 142 mmol/L (135-145); Total Bilirubin 0.9 mg/dl (0.2-1.3); Total Protein 6.1 g/dl (6.3-8.2); eGFR > 60.00
[2023-10-19 07:09] LABS: PSA, Total - Diagnostic 0.25 ng/ml (0.0-4.0)
--- NOTE | 2023-10-19 07:41 | W.PN.URO.CBU ---
Today's Communication / Plan
-
continue flomax/local wound care and antibx
Assessment / Plan
-
UTI
penile wounds due to local trauma form condom cath
chronic frequency
prostate cancer
IPP
pt stable/improved
wbc normalized- ucx and f/u blood cx's pending
voiding sx's improved- pvr's under 150cc
no evid of IPP erosion
to continue flomax
ID following- cx's pending
continue local wound care to penile lesions
reviewed with pt- in event IPP become compromise/develops retention- could possible need OR explant/cysto- dilation given gu hx
will follow
Diagnosis
-
Date of Service: October 19, 2023
-
Patient Diagnosis:
hx of xrt for prostate cancer
hx of IPP placement
chronic urinary frequency and urgency
UTI
penile wounds
Subjective
-
pt says he feels better
flomax was increased to 0.8mg
his freq and urgency are better- urine clear
less penile pain
one low grade temp- wbc normal
psa <1
ucx pending
Objective
-
Vital Signs
Temp Pulse Resp BP Pulse Ox
100.0 F 89 18 138/66 99
10/19/23 03:24 10/19/23 03:24 10/19/23 03:24 10/19/23 03:24 10/19/23 03:24
Intake and Output
10/18/23 10/19/23 10/20/23
06:59 06:59 06:59
Intake Total 1650 / 1650 330 / 330
Output Total 450 / 450 475 / 475
Balance 1200 / 1200 -145 / -145
Intake:
Oral fluids 690 / 690 330 / 330
IV fluids (Total) 960 / 960
Output:
Urine, Voided 450 / 450 475 / 475
Other:
Number of approximated MODERATE 2
amounts of urine
How many times incontinent 1 1
SATURATED amount urine
Laboratory Results
10/19/23 06:02
10/19/23 06:02
Review of Systems
-
Constitutional: Fatigue
Respiratory: No Symptoms
Cardiac: No Symptoms
Abdomen/GI: No Symptoms
: Frequency
Physical Exam
-
General - no acute distress
Abdomen - soft, non-tender,
Genitalia- IPP in place with no evid of compromise- no erythema or sig edema- penile wounds with some mild escahr- but no evid of advancing infx
Neuro - AOx3, no motor deficits
[2023-10-19 08:15] LABS: Glucose - Point of Care 104 mg/dl (70-99)
--- NOTE | 2023-10-19 08:30 | PHA.VAN.FU ---
Vancomycin Assessment / Plan
- Assessment
Renal Function: Stable
WBC's are: WNL
In the past 24 hrs, patient has been: Afebrile
Concomitant Antimicrobials: ceftriaxone
- Dosing Plan
Continue: Vanc 1000mg Q12H
- Monitoring Plan
No level(s) ordered at this time: consider levels in next few days
- Follow Up
Pharmacy will continue to follow.
Vancomycin Follow UP
- -
Patient Age: 87
Patient Sex: Male
Vancomycin Day #: 2
Indication: Bacteremia
Requesting Provider: Dr. Martin / Arben
Pertinent Antimicrobial Allergies:
penicillins - hives
Height / Weight:
Height 5 ft 8 in
Actual Weight 85.077 kg
- Vital Signs / Lab Results
Temp Pulse Resp BP Pulse Ox
98.5 F 88 18 171/83 99
10/19/23 07:30 10/19/23 07:30 10/19/23 07:30 10/19/23 07:30 10/19/23 07:30
Lab Results - Hematology
10/16/23 10/17/23 10/18/23
18:12 07:11 06:12
WBC 10.8 10.9 H 6.5
10/19/23
06:02
WBC 5.7
Lab Results - Chemistry
10/16/23 10/16/23 10/17/23
18:12 18:48 07:11
BUN Cancelled 25 H 26 H
Creatinine Cancelled 1.4 H 0.9
Estimated Creat Clear Cancelled 40 55
Albumin Cancelled 3.1 L 2.9 L
10/18/23 10/19/23
06:12 06:02
BUN 17 13
Creatinine 0.7 0.7
Estimated Creat Clear 71 71
Albumin 2.6 L 2.6 L
Microbiology Results
10/16/23 20:23 Urine Culture - Preliminary
Urine Gram negative bacilli
10/16/23 20:22 Blood Culture - Preliminary
Blood/Venous Staphylococcus epidermidis
Gram Stain - Preliminary
10/17/23 05:05 Salmonella/Shigella Culture - Preliminary
Feces/Stool Culture in Progress
Campylobacter Culture - Preliminary
Culture in Progress
Shiga Toxin Test - Final
No E. coli Shiga Toxin 1 or 2 detected.
10/16/23 20:22 Blood Culture - Preliminary
Blood/Venous Positive culture in progress
Gram Stain - Preliminary
10/17/23 05:05 C. difficile GDH Antigen & Toxins - Final
Feces/Stool Negative for toxigenic C.difficile
- Final
Negative for Norovirus GI and GII.
[2023-10-19] MEDS: NOVOLOG FLEXPEN-LOW RESISTANCE SC ×2 (08:35→12:24)
[2023-10-19] MEDS: LOW STRENGTH ASPIRIN 81 MG PO (08:35)
[2023-10-19] MEDS: FLOMAX 0.800000000000000044 MG PO (08:35)
[2023-10-19] MEDS: PLETAL 100 MG PO ×2 (08:35→21:03)
[2023-10-19] MEDS: PROTONIX 40 MG PO (08:36)
[2023-10-19] MEDS: COREG 12.5 MG PO ×2 (08:36→21:03)
[2023-10-19] MEDS: HEPARIN 5000 UNITS SC ×2 (08:36→21:03)
[2023-10-19] MEDS: NEURONTIN 300 MG PO ×2 (08:36→21:03)
[2023-10-19] MEDS: ZINC OXIDE OINTMENT 1 APPLIC TOPICAL (09:45)
[2023-10-19] MEDS: NOVOLOG MIX 70/30 FLEXPEN SC ×2 (09:48→21:22)
[2023-10-19 12:24] LABS: Glucose - Point of Care 140 mg/dl (70-99)
--- NOTE | 2023-10-19 12:31 | W.PN.HOSP.TC ---
Today's Communication/Plan
-
await Shoulder CT
resume CONNOR
Continue Abx pending ID recs
Assessment / Plan
Assessment / Plan
Assessment:
Hypotension
Dehydration with PEMA
- felt secondary to acute gastroenteritis
- BP improved with IVF
- Cr improved with IVF
acute gastroenteritis
- stool studies NGTD
- tolerating reg diet
EKG changes likely secondary to hypotension in the setting of underlying CAD
History of CAD status post quadruple bypass in 2003
- No chest pain
- Initial EKG showed ST elevations in leads II, 3, aVF with some improvement with IV fluids
- trops slightly detectable but not up-trending
- Echo: EF 60%, mild LVH, mild to mod MR, mild TR
- obtain records from [facility]
- continue Coreg/ASA
- hold statin due to high LFTs
- DCA Cards signed off
Glans penis with 2 superficial ulcers from recent condom cath placement by family
- continue topical zinc gel for now; f/u Urology and wound care recs
Complicated E. Coli and Klebsiella UTI in male with recent condom cath usage
History of neurogenic bladder secondary to diabetes
- BS/SC protocol
- continue Flomax, double dose
- continue Rocephin. Follow ID and Urology recs
Gram positive bacteremia
- in 2 initial bottles, staph epi, CoNS, likely dual contaminant, await repeat cultures
- repeat blood cultures now then start Vancomycin (Vanco requires intensive monitoring)
- ID following
Transaminitis, acute vs chronic
- trend LFTs, might be related to shock in setting of hypotension
- hold Statin
- US Abdomen without acute pathology
Peripheral vascular disease
- continue cilostazol
Essential hypertension
- resume lisinopril/bb
GERD
- continue Protonix
Type 2 diabetes
- continue NovoLog 70�30, 22 units twice daily
- insulin sliding scale
- diabetic diet
- outpatient emergency department clinician follow up (hx of cataracts)
HLD
- hold colesevelam
- hold statin due to high LFTs
Diabetic neuropathy
- continue gabapentin
Depression
Hx of Fall 3 months ago with resultant ambulatory dysfunction
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 A faint area of lucency in the midportion of the glenoid
on the right may represent a nondisplaced fracture.
- Shoulder CT pending
- Hip Xray: Degenerative joint disease with mild joint narrowing. No fracture or dislocation on either side.
- Knee Xray: Status post total knee replacement on the right. Anatomic alignment. Small joint effusion. Moderate degenerative joint disease of the left knee.
- L spine Xray: Moderate degenerative disk and joint disease in the lumbar spine. Scoliosis. Status post fusion L3-L5.
- PT/OT - SNF recommended
Hx of prostate cancer s/p XRT and IPP Placement ([facility])
- PSA normal
DVT ppx: SC heparin
Code: Full
Anticipated Discharge: > 48 hours
Subjective/Interval History
-
Date of Service: October 19, 2023
no new complaints presently
reports penile pain improving
Objective Data
-
Labs:
Laboratory Results
10/19/23
06:02
WBC 5.7
Hgb 10.4 L
Hct 30.3 L
Plt Count 319
Sodium 142
Potassium 3.5
Chloride 115 H
Carbon Dioxide 24
BUN 13
Creatinine 0.7
Glucose 95
Calcium 8.4
Total Bilirubin 0.9
AST 621 H*
ALT 418 H
Alkaline Phosphatase 204 H
Vital Signs:
Vital Signs
Temp Pulse Resp BP Pulse Ox
98.5 F 88 18 171/83 99
10/19/23 07:30 10/19/23 08:36 10/19/23 07:30 10/19/23 08:36 10/19/23 07:30
I&O
10/18/23 10/19/23 10/20/23
06:59 06:59 06:59
Intake Total 1650 / 1650 330 / 330
Output Total 450 / 450 475 / 475
Balance 1200 / 1200 -145 / -145
Physical Exam
-
General: No Apparent Distress
HEENT: Normocephalic
Respiratory: Negative Wheezes
Cardiac: Regular Rhythm and S1/S2
GI: Soft and Nontender
Musculoskeletal: No Edema
Neuro: AO x 3
Hematologic / Lymphatic: No Lymphadenopathy
Psych: Calm
Data Reviewed
-
Total Time Spent with Patient (in minutes): 42
Labs: Labs Reviewed by me
[2023-10-19] MEDS: ZESTRIL 5 MG PO (13:05)
--- NOTE | 2023-10-19 13:09 | W.PN.ID1 ---
Date of Service
Date of Service: October 19, 2023
Today's Communication
Tomorrow transition to cefuroxime 500mg po bid through 10/29/2023.
Call if any questions.
Assessment / Plan
# E. coli/Klebsiella UTI
-Abd US no hydro
-Continue ceftriaxone (d4)
-Tomorrow transition to cefuroxime 500mg po bid through 10/29/2023.
# CoNS bacteremia = Contaminant
-Repeat blood cx's x 2 (before Vancomycin) neg to date.
- DC Vancomycin.
#N/V/D resolved
- C. diff neg
- Stool cx negative
# Elevated transaminases trending down
- no Rivera sign
- Abd US unremarkable
-Trend LFT's
#Additional Past Medical History:
Diabetes mellitus
Peripheral neuropathy
Hypertension
CAD status post CABG x 4
PAD
BPH
Depression
Ambulatory dysfunction since fall 05/2023
hx penile implant
Right total knee replacement
L3-L5 fusion
Cervical fusion
Chief Complaint
-: UTI
Subjective / Review of Systems
Feeling better today.
Vital Signs / Physical Exam
Vital Signs
Vital Signs
Temp Pulse Resp BP Pulse Ox
98.5 F 88 18 171/83 99
10/19/23 07:30 10/19/23 08:36 10/19/23 07:30 10/19/23 08:36 10/19/23 07:30
Physical Exam
Constitutional: No Acute Distress and Comfortable
Cardiovascular: Regular Rate and S1/S2
Pulmonary: Clear
Gastrointestinal: Soft, Non Tender and Non Distended
Extremities: Negative Edema
Neurological: AO x 3
Objective Data
Lab Data
Lab Results
10/19/23 06:02
10/19/23 06:02
PT 16.7 Sec (11.4-14.6) H 10/16/23 19:09
INR 1.37 10/16/23 19:09
Estimated Creat Clear 71 ml/min 10/19/23 06:02
Total Bilirubin 0.9 mg/dl (0.2-1.3) 10/19/23 06:02
AST 621 U/L (17-59) H* 10/19/23 06:02
ALT 418 U/L (0-50) H 10/19/23 06:02
Alkaline Phosphatase 204 U/L (38-126) H 10/19/23 06:02
Most recent labs reviewed.
Micro Results:
10/18/23 12:18 Blood Culture - Preliminary
Blood/Venous No Growth in 24 hours- Final report to follow
10/16/23 20:22 Blood Culture - Preliminary
Blood/Venous Coagulase neg. staphylococcus
Gram Stain - Preliminary
10/18/23 11:28 Blood Culture - Preliminary
Blood/Venous No Growth in 24 hours- Final report to follow
10/17/23 05:05 Salmonella/Shigella Culture - Final
Feces/Stool No Salmonella, Shigella, Aeromonas or Plesiomonas species
isolated.
Campylobacter Culture - Final
No Campylobacter species isolated.
Shiga Toxin Test - Final
No E. coli Shiga Toxin 1 or 2 detected.
10/16/23 20:22 Blood Culture - Preliminary
Blood/Venous Staphylococcus epidermidis
Gram Stain - Preliminary
10/16/23 20:23 Urine Culture - Final
Urine Escherichia coli
Klebsiella pneumoniae
10/17/23 05:05 C. difficile GDH Antigen & Toxins - Final
Feces/Stool Negative for toxigenic C.difficile
- Final
Negative for Norovirus GI and GII.
10/16/23 CXR: No acute disease of the chest.
10/17/23 Knee XRAY: No fracture or dislocation. Status post total knee replacement on the right. Anatomic alignment. Small joint effusion. Moderate degenerative joint disease of the left knee.
10/18/23 ABD US: The liver is normal in size, measuring 13.2 cm in length. It is normal in echogenicity. There is no focal hepatic lesion or intrahepatic biliary dilation. The gallbladder is physiologically distended with fluid and shows no shadowing
calculi or wall thickening. The common duct is normal, measuring 3 mm. The pancreas is nonvisualized. The spleen is normal in size and shows no focal abnormality. Survey evaluation of the kidneys shows no hydronephrosis. No free fluid is seen in
the abdomen. The proximal IVC and abdominal aorta are unremarkable. There is a tiny right pleural effusion. There is a small left pleural effusion.
--- NOTE | 2023-10-19 14:34 | CM ---
Case management following for d/c planning
Chart reviewed
Remains on antibiotics; seen by wound care
Currently at [facility] for Respite Care
PT/OT recommending SNF
Spoke with pts salvador Jasso - Prefers referral sent to [facility]
Referral sent in [facility]
Will need auth
Plan - [facility] SNF when medically ready
[2023-10-19] MEDS: ZINC OXIDE OINTMENT TOPICAL ×2 (15:07→21:04)
--- NOTE | 2023-10-19 15:13 | PN.CDI ---
CDI
- -
CDI:
Physician Documentation Request
Admit Date: 10/16/23 20:15
Dear Doctor Mario,
Please review the following and provide your response in the progress notes.
Clinical Indicators:
Pt admitted with PEMA/Hypotension/Dehydration 2/2 Acute gastroenteritis /UTI
Documented per progress note 10/16-10/18, '...Transaminitis, acute vs chronic trend LFTs, might be related to shock in setting of hypotension...'
Trended LFTs below
10/16/23 10/17/23 10/18/23
18:48 07:11 06:12
AST 109 H 248 H 708 H*
ALT 94 H 168 H 396 H
10/19/23
06:02
AST 621 H*
ALT 418 H
Please provide a diagnosis for the above abnormal elevated LFTs :
Shock Liver
Transaminitis only
Other ( please specify)
Use of terms such as suspected, likely, concern for, or probable (associated with a specific diagnosis that is being evaluated, monitored, or treated as if it exists) are acceptable and can be coded in the inpatient setting, when documented at the
time of discharge.
Thank you,
Daniella Holt RN
CDI Specialist
[place] [facility]
Please use your independent medical judgment in providing your response.
[2023-10-19 17:58] LABS: Glucose - Point of Care 208 mg/dl (70-99)
[2023-10-19] MEDS: NOVOLOG FLEXPEN-LOW RESISTANCE 2 UNITS SC (18:11)
[2023-10-19 21:22] LABS: Glucose - Point of Care 201 mg/dl (70-99)
[2023-10-19] MEDS: TYLENOL 650 MG PO (23:41)
[2023-10-20 02:47] VITALS: BP 125/65
[2023-10-20 07:58] LABS: Glucose - Point of Care 136 mg/dl (70-99)
[2023-10-20 08:00] VITALS: BP 173/78
[2023-10-20] MEDS: COREG 12.5 MG PO ×2 (08:00→20:43)
[2023-10-20] MEDS: CEFTIN 500 MG PO ×2 (08:00→20:43)
[2023-10-20] MEDS: NOVOLOG FLEXPEN-LOW RESISTANCE SC (08:00)
[2023-10-20] MEDS: PLETAL 100 MG PO ×2 (08:00→20:43)
[2023-10-20] MEDS: LOW STRENGTH ASPIRIN 81 MG PO (08:01)
[2023-10-20] MEDS: FLOMAX 0.800000000000000044 MG PO (08:01)
[2023-10-20] MEDS: PROTONIX 40 MG PO (08:01)
[2023-10-20] MEDS: NEURONTIN 300 MG PO ×2 (08:02→20:43)
[2023-10-20] MEDS: ZESTRIL 5 MG PO ×2 (08:02→11:43)
[2023-10-20] MEDS: HEPARIN 5000 UNITS SC ×2 (08:02→20:43)
[2023-10-20] MEDS: ZINC OXIDE OINTMENT TOPICAL ×3 (08:03→21:38)
[2023-10-20] MEDS: NOVOLOG MIX 70/30 FLEXPEN 22 UNITS SC ×2 (08:06→21:36)
[2023-10-20 08:13] LABS: Hematocrit 31.5 % (39.0-52.0); Hemoglobin 10.3 g/dL (13.0-18.0); Mean Corp Hgb Conc. 32.7 g/dL (33.0-37.0); Mean Corpuscular Hgb 26.5 pg (27.0-31.0); Mean Platelet Volume 9.6 fL (7.4-10.4); Platelet Count 305 10^3/uL (130-400); Red Blood Cell Count 3.89 10^6/uL (4.70-6.10); Red Cell Dist. Width 15.5 % (11.5-14.5); White Blood Cell Count 4.9 10^3/uL (4.8-10.8)
[2023-10-20 08:30] LABS: ALT (SGPT) 264 U/L (0-50); AST (SGOT) 253 U/L (17-59); Albumin 2.6 g/dl (3.5-5.0); Alkaline Phosphatase 174 U/L (38-126); Blood Urea Nitrogen 12 mg/dl (9-20); Calcium 8.3 mg/dl (8.4-10.2); Carbon Dioxide 24 mmol/L (22-30); Chloride 112 mmol/L (98-107); Estimated Creatinine Clearance 62 ml/min; Glucose 129 mg/dl (70-99); Potassium 3.6 mmol/L (3.5-5.1); Sodium 140 mmol/L (135-145); Total Bilirubin 0.9 mg/dl (0.2-1.3); eGFR > 60.00
--- NOTE | 2023-10-20 08:32 | W.PN.HOSP.TC ---
Today's Communication/Plan
-
uptitrate Lisinopril 10mg daily
Assessment / Plan
Assessment / Plan
Assessment:
Hypotension
Dehydration with PEMA
- felt secondary to acute gastroenteritis
- BP improved with IVF
- Cr improved with IVF
acute gastroenteritis
- stool studies NGTD
- tolerating reg diet
EKG changes likely secondary to hypotension in the setting of underlying CAD
History of CAD status post quadruple bypass in 2003
- No chest pain
- Initial EKG showed ST elevations in leads II, 3, aVF with some improvement with IV fluids
- trops slightly detectable but not up-trending
- Echo: EF 60%, mild LVH, mild to mod MR, mild TR
- obtain records from [facility]
- continue Coreg/ASA
- hold statin due to high LFTs
- DCA Cards signed off
Glans penis with 2 superficial ulcers from recent condom cath placement by family
- continue topical zinc gel for now; f/u Urology and wound care recs
Complicated E. Coli and Klebsiella UTI in male with recent condom cath usage
History of neurogenic bladder secondary to diabetes
- BS/SC protocol
- continue Flomax, double dose
- continue Cefuroxime BID through 10/28. Follow ID and Urology recs
Bacteremia
- in 2 initial bottles, staph epi, CoNS, likely dual contaminant, repeat cultures negative
- now off Vanco per ID
Transaminitis, acute vs chronic
- trend LFTs, most likely related to shock liver in setting of hypotension. LFTs are improving.
- hold Statin
- US Abdomen without acute pathology
Peripheral vascular disease
- continue cilostazol
Essential hypertension
- continue lisinopril, increase to 10mg daily
- continue coreg
GERD
- continue Protonix
Type 2 diabetes
- continue NovoLog 70�30, 22 units twice daily
- insulin sliding scale
- diabetic diet
- outpatient esthetician permanent makeup artist follow up (hx of cataracts)
HLD
- hold colesevelam
- hold statin due to high LFTs
Diabetic neuropathy
- continue gabapentin
Depression
Hx of Fall 3 months ago with resultant ambulatory dysfunction
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 A faint area of lucency in the midportion of the glenoid
on the right may represent a nondisplaced fracture.
- Shoulder CT without fracture
- Hip Xray: Degenerative joint disease with mild joint narrowing. No fracture or dislocation on either side.
- Knee Xray: Status post total knee replacement on the right. Anatomic alignment. Small joint effusion. Moderate degenerative joint disease of the left knee.
- L spine Xray: Moderate degenerative disk and joint disease in the lumbar spine. Scoliosis. Status post fusion L3-L5.
- PT/OT - SNF recommended
Hx of prostate cancer s/p XRT and IPP Placement ([facility])
- PSA normal
DVT ppx: SC heparin
Code: Full
Anticipated Discharge: > 48 hours
Subjective/Interval History
-
Date of Service: October 20, 2023
no new complaints presently
states penis is feeling better today
Objective Data
-
Labs:
Laboratory Results
10/20/23
07:58
WBC 4.9
Hgb 10.3 L
Hct 31.5 L
Plt Count 305
Sodium 140
Potassium 3.6
Chloride 112 H
Carbon Dioxide 24
BUN 12
Creatinine 0.8
Glucose 129 H
Calcium 8.3 L
Total Bilirubin 0.9
AST 253 H
ALT 264 H
Alkaline Phosphatase 174 H
Vital Signs:
Vital Signs
Temp Pulse Resp BP Pulse Ox
98.9 F 79 18 173/78 98
10/20/23 08:00 10/20/23 08:02 10/20/23 08:00 10/20/23 08:02 10/20/23 08:00
I&O
10/19/23 10/20/23 10/21/23
06:59 06:59 06:59
Intake Total 330 / 330 1100 / 1100
Output Total 475 / 475 200 / 200
Balance -145 / -145 900 / 900
Physical Exam
-
General: No Apparent Distress
HEENT: Normocephalic and Atraumatic
Respiratory: Negative Wheezes
Cardiac: Regular Rhythm and S1/S2
GI: Soft
Musculoskeletal: No Edema
Neuro: AO x 3
Hematologic / Lymphatic: No Lymphadenopathy
Psych: Calm
Data Reviewed
-
Total Time Spent with Patient (in minutes): 42
Labs: Labs Reviewed by me
--- NOTE | 2023-10-20 09:52 | W.PN.URO.CBU ---
Today's Communication / Plan
-
Continue antibiotics and local wound care
Assessment / Plan
-
UTI
penile wounds due to local trauma form condom cath
chronic frequency
prostate cancer
IPP
pt stable/improved
wbc normalized- ucx and f/u blood cx's pending (suspected contaminant per ID)
voiding sx's improved- pvr's under 150cc
no evidence of IPP erosion or device infection. IPP device deflated completely at bedside
Continue flomax 0.8mg daily at discharge
Antibiotic course per ID recs
continue local wound care to penile lesions
Diagnosis
-
Date of Service: October 20, 2023
-
Patient Diagnosis:
hx of xrt for prostate cancer
hx of IPP placement
chronic urinary frequency and urgency
UTI
penile wounds
Subjective
-
Feeling well today
No skin or urinary/voiding complaints
Objective
-
Vital Signs
Temp Pulse Resp BP Pulse Ox
98.9 F 79 18 173/78 98
10/20/23 08:00 10/20/23 08:02 10/20/23 08:00 10/20/23 08:02 10/20/23 08:00
Intake and Output
10/19/23 10/20/23 10/21/23
06:59 06:59 06:59
Intake Total 330 / 330 1100 / 1100
Output Total 475 / 475 200 / 200
Balance -145 / -145 900 / 900
Intake:
Oral fluids 330 / 330 600 / 600
IV fluids (Total) 500 / 500
Output:
Urine, Voided 475 / 475 200 / 200
Other:
How many times incontinent 1 2
SATURATED amount urine
Laboratory Results
10/20/23 07:58
10/20/23 07:58
Physical Exam
-
General - well developed, well nourished, no acute distress
Chest - clear bilaterally
Abdomen - soft, non-tender
- healing penile wound. Nontender, no abscess. IPP device found inflated
Skin - warm & dry with no rash
Neuro - AOx3, no motor deficits
Extremities - no clubbing, no cyanosis, no edema
Incision - clean, dry
Dressing - clean, dry, intact
[2023-10-20 11:30] VITALS: BP 143/62
[2023-10-20 11:55] LABS: Glucose - Point of Care 203 mg/dl (70-99)
[2023-10-20] MEDS: NOVOLOG FLEXPEN-LOW RESISTANCE 2 UNITS SC (12:03)
[2023-10-20] MEDS: ANESTHETIC LOZENGE 1 LOZENGE PO ×2 (12:08→17:12)
--- NOTE | 2023-10-20 14:48 | CM ---
Addendum entered by Yoko Verdugo 10/20/23 15:14:
[facility] Minda oscar, notified via phone
Original Note:
Plan: Patient stable to return to [facility] on Sunday;
Authorization submitted to [facility] and Approved via [employer];
Correction approved from 10/21 thru 11/03/2023;
AUTH # [id number]
[2023-10-20 16:00] VITALS: BP 170/76
[2023-10-20 17:16] LABS: Glucose - Point of Care 171 mg/dl (70-99)
[2023-10-20] MEDS: NOVOLOG FLEXPEN-LOW RESISTANCE 1 UNITS SC (17:16)
--- NOTE | 2023-10-20 17:44 | PTCARENOTE ---
Pt is alert and oriented x3, little hard of hearing. Denies any pain. Tolerating diet well. Pt has had no complaints today, in good spirits. Continuing wound care to penis area per WOC order. Pt is being turned and repositioned. Incontinence care
provided when needed. VSS. Pt is currently resting in bed. All needs are meet at this time. Call lópez is within reach.
[2023-10-20 19:00] VITALS: BP 152/75
[2023-10-20 21:18] LABS: Glucose - Point of Care 298 mg/dl (70-99)
[2023-10-20] MEDS: TESSALON PERLES 100 MG PO (21:45)
[2023-10-20 23:06] VITALS: BP 158/76
[2023-10-21 02:52] VITALS: BP 128/68
[2023-10-21 03:47] VITALS: BMI 29.0
[2023-10-21 06:00] VITALS: BMI 29.0
[2023-10-21 07:00] VITALS: BP 143/68
[2023-10-21] MEDS: CEFTIN 500 MG PO ×2 (08:05→20:35)
[2023-10-21] MEDS: FLOMAX 0.800000000000000044 MG PO (08:05)
[2023-10-21] MEDS: ZESTRIL 10 MG PO (08:05)
[2023-10-21] MEDS: LOW STRENGTH ASPIRIN 81 MG PO (08:05)
[2023-10-21] MEDS: PLETAL 100 MG PO ×2 (08:05→20:35)
[2023-10-21] MEDS: NEURONTIN 300 MG PO ×2 (08:05→20:35)
[2023-10-21] MEDS: PROTONIX 40 MG PO (08:05)
[2023-10-21] MEDS: COREG 12.5 MG PO ×2 (08:06→20:35)
[2023-10-21] MEDS: HEPARIN 5000 UNITS SC ×2 (08:06→20:35)
[2023-10-21 08:14] LABS: Glucose - Point of Care 155 mg/dl (70-99)
[2023-10-21] MEDS: NOVOLOG FLEXPEN-LOW RESISTANCE 1 UNITS SC ×2 (08:15→12:54)
[2023-10-21] MEDS: NOVOLOG MIX 70/30 FLEXPEN 22 UNITS SC ×2 (08:16→21:03)
[2023-10-21] MEDS: ZINC OXIDE OINTMENT TOPICAL ×4 (08:23→20:36)
[2023-10-21 08:45] LABS: ALT (SGPT) 218 U/L (0-50); AST (SGOT) 180 U/L (17-59); Albumin 2.5 g/dl (3.5-5.0); Alkaline Phosphatase 154 U/L (38-126); Blood Urea Nitrogen 11 mg/dl (9-20); Carbon Dioxide 23 mmol/L (22-30); Chloride 112 mmol/L (98-107); Estimated Creatinine Clearance 71 ml/min; Glucose 116 mg/dl (70-99); Potassium 3.4 mmol/L (3.5-5.1); Sodium 139 mmol/L (135-145); Total Bilirubin 0.5 mg/dl (0.2-1.3); Total Protein 5.9 g/dl (6.3-8.2); eGFR > 60.00
[2023-10-21 11:00] VITALS: BP 134/60
[2023-10-21 11:42] LABS: Glucose - Point of Care 180 mg/dl (70-99)
--- NOTE | 2023-10-21 12:00 | W.PN.URO.CBU ---
Today's Communication / Plan
-
Continue flomax 0.8mg daily at discharge
Antibiotic course per ID recs - cefuroxime 500mg BID
continue local wound care to penile lesions
Outpatient urology follow up after discharge
Assessment / Plan
-
UTI
penile wounds due to local trauma form condom cath
chronic frequency
prostate cancer
IPP
penile excoriation well healing
wbc normalized- ucx and f/u blood cx's pending (suspected contaminant per ID)
voiding sx's at baseline with pvr's under 150cc
no evidence of IPP erosion or device infection. IPP device deflated completely at bedside
Continue flomax 0.8mg daily at discharge
Antibiotic course per ID recs
continue local wound care to penile lesions
Outpatient urology follow up after discharge
Diagnosis
-
Date of Service: October 21, 2023
-
Patient Diagnosis:
Post Op Day:
Patient Diagnosis:
hx of xrt for prostate cancer
hx of IPP placement
chronic urinary frequency and urgency
UTI
penile wounds
Subjective
-
No problems overnight
Objective
-
Vital Signs
Temp Pulse Resp BP Pulse Ox
97.8 F 75 18 134/60 97
10/21/23 11:00 10/21/23 11:00 10/21/23 11:00 10/21/23 11:00 10/21/23 11:00
Intake and Output
10/20/23 10/21/23 10/22/23
06:59 06:59 06:59
Intake Total 1100 / 1100 960 / 960
Output Total 200 / 200 550 / 550
Balance 900 / 900 410 / 410
Intake:
Oral fluids 600 / 600 960 / 960
IV fluids (Total) 500 / 500
Output:
Urine, Voided 200 / 200 550 / 550
Other:
Number of approximated MODERATE 1
amounts of urine
Number of approximated LARGE 1
amounts of urine
How many times incontinent 2
SATURATED amount urine
Laboratory Results
10/20/23 07:58
10/21/23 07:53
Physical Exam
-
General - well developed, well nourished, no acute distress
Chest - clear
Abdomen - soft, non-tender
- well healing penile wounds. IPP nontender
--- NOTE | 2023-10-21 12:15 | CM ---
Patient sound asleep when attempted to discuss DC plan today; contacted son, Romero, via phone
[facility] IMM benefit explained to son during DC plan discussion @ 1210
Plan: discharge to [facility] Bed tomorrow
--- NOTE | 2023-10-21 13:18 | W.PN.HOSP.TC ---
Today's Communication/Plan
-
replete K+
otherwise medically stable for DC to SNF when bed available likely Sunday
Assessment / Plan
Assessment / Plan
Assessment:
Hypotension
Dehydration with PEMA
- felt secondary to acute gastroenteritis
- BP improved with IVF
- Cr improved with IVF
acute gastroenteritis
- stool studies NGTD
- tolerating reg diet
EKG changes likely secondary to hypotension in the setting of underlying CAD
History of CAD status post quadruple bypass in 2003
- No chest pain
- Initial EKG showed ST elevations in leads II, 3, aVF with some improvement with IV fluids
- trops slightly detectable but not up-trending
- Echo: EF 60%, mild LVH, mild to mod MR, mild TR
- obtain records from [facility]
- continue Coreg/ASA
- hold statin due to high LFTs
- DCA Cards signed off
Glans penis with 2 superficial ulcers from recent condom cath placement by family
- continue topical zinc gel for now; f/u Urology and wound care recs
Complicated E. Coli and Klebsiella UTI in male with recent condom cath usage
History of neurogenic bladder secondary to diabetes
- BS/SC protocol
- continue Flomax, double dose
- continue Cefuroxime BID through 10/28. Follow ID and Urology recs
Bacteremia
- in 2 initial bottles, staph epi, CoNS, likely dual contaminant, repeat cultures negative
- now off Vanco per ID
Transaminitis, acute vs chronic
- trend LFTs, most likely related to shock liver in setting of hypotension. LFTs are improving.
- hold Statin
- US Abdomen without acute pathology
Peripheral vascular disease
- continue cilostazol
Essential hypertension
- continue lisinopril, increase to 10mg daily
- continue coreg
GERD
- continue Protonix
Type 2 diabetes
- continue NovoLog 70�30, 22 units twice daily
- insulin sliding scale
- diabetic diet
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
HLD
- hold colesevelam
- hold statin due to high LFTs
Diabetic neuropathy
- continue gabapentin
Depression
Hx of Fall 3 months ago with resultant ambulatory dysfunction
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 A faint area of lucency in the midportion of the glenoid
on the right may represent a nondisplaced fracture.
- Shoulder CT without fracture
- Hip Xray: Degenerative joint disease with mild joint narrowing. No fracture or dislocation on either side.
- Knee Xray: Status post total knee replacement on the right. Anatomic alignment. Small joint effusion. Moderate degenerative joint disease of the left knee.
- L spine Xray: Moderate degenerative disk and joint disease in the lumbar spine. Scoliosis. Status post fusion L3-L5.
- PT/OT - SNF recommended
Hx of prostate cancer s/p XRT and IPP Placement ([place])
- PSA normal
Hypokalemia - replete prn
DVT ppx: SC heparin
Code: Full
Anticipated Discharge: Within 24 hours
Subjective/Interval History
-
Date of Service: October 21, 2023
no new complaints currently
Objective Data
-
Labs:
Laboratory Results
10/21/23
07:53
Sodium 139
Potassium 3.4 L
Chloride 112 H
Carbon Dioxide 23
BUN 11
Creatinine 0.7
Glucose 116 H
Calcium 8.0 L
Total Bilirubin 0.5
AST 180 H
ALT 218 H
Alkaline Phosphatase 154 H
Vital Signs:
Vital Signs
Temp Pulse Resp BP Pulse Ox
97.8 F 75 18 134/60 97
10/21/23 11:00 10/21/23 11:00 10/21/23 11:00 10/21/23 11:00 10/21/23 11:00
I&O
10/20/23 10/21/23 10/22/23
06:59 06:59 06:59
Intake Total 1100 / 1100 960 / 960
Output Total 200 / 200 550 / 550
Balance 900 / 900 410 / 410
Physical Exam
-
General: No Apparent Distress
HEENT: Normocephalic and Atraumatic
Respiratory: Negative Wheezes
Cardiac: Regular Rhythm and S1/S2
GI: Soft and Nontender
Musculoskeletal: No Edema
Neuro: AO x 3
Psych: Calm
Data Reviewed
-
Total Time Spent with Patient (in minutes): 42
Labs: Labs Reviewed by me
[2023-10-21] MEDS: KCL 40 MEQ PO (14:29)
[2023-10-21 15:00] VITALS: BP 134/66
[2023-10-21 16:27] LABS: Glucose - Point of Care 119 mg/dl (70-99)
[2023-10-21] MEDS: NOVOLOG FLEXPEN-LOW RESISTANCE SC (17:26)
[2023-10-21 19:42] VITALS: BP 173/88
[2023-10-21 21:03] LABS: Glucose - Point of Care 215 mg/dl (70-99)
[2023-10-21 23:21] VITALS: BP 142/66
[2023-10-22 03:05] VITALS: BP 140/73
[2023-10-22 06:11] VITALS: BMI 28.9
[2023-10-22 07:00] VITALS: BP 149/78
[2023-10-22 07:16] LABS: ALT (SGPT) 183 U/L (0-50); AST (SGOT) 147 U/L (17-59); Albumin 2.4 g/dl (3.5-5.0); Alkaline Phosphatase 138 U/L (38-126); Blood Urea Nitrogen 10 mg/dl (9-20); Carbon Dioxide 24 mmol/L (22-30); Chloride 114 mmol/L (98-107); Estimated Creatinine Clearance 71 ml/min; Glucose 109 mg/dl (70-99); Potassium 3.7 mmol/L (3.5-5.1); Sodium 141 mmol/L (135-145); Total Bilirubin 0.5 mg/dl (0.2-1.3); Total Protein 5.7 g/dl (6.3-8.2); eGFR > 60.00
[2023-10-22 07:43] LABS: Glucose - Point of Care 134 mg/dl (70-99)
[2023-10-22] MEDS: NOVOLOG FLEXPEN-LOW RESISTANCE SC ×2 (07:51→12:00)
[2023-10-22] MEDS: NEURONTIN 300 MG PO (07:55)
[2023-10-22] MEDS: FLOMAX 0.800000000000000044 MG PO (07:56)
[2023-10-22] MEDS: COREG 12.5 MG PO (07:56)
[2023-10-22] MEDS: PLETAL 100 MG PO (07:56)
[2023-10-22] MEDS: LOW STRENGTH ASPIRIN 81 MG PO (07:56)
[2023-10-22] MEDS: CEFTIN 500 MG PO (07:56)
[2023-10-22] MEDS: ZESTRIL 10 MG PO (07:57)
[2023-10-22] MEDS: HEPARIN 5000 UNITS SC (07:57)
[2023-10-22] MEDS: PROTONIX 40 MG PO (08:01)
[2023-10-22] MEDS: ZINC OXIDE OINTMENT TOPICAL (08:06)
[2023-10-22] MEDS: NOVOLOG MIX 70/30 FLEXPEN 22 UNITS SC (08:26)
--- NOTE | 2023-10-22 09:55 | W.PN.ID1 ---
Date of Service
Date of Service: October 22, 2023
Today's Communication
Continue cefuroxime 500mg po bid through 10/29/2023.
ID will sign off.
Assessment / Plan
# E. coli/Klebsiella UTI
-Abd US no hydro
-Continue cefuroxime 500mg po bid through 10/29/2023.
# CoNS bacteremia = Contaminant
-Repeat blood cx's x 2 (before Vancomycin) neg to date.
- No need to treat.
#N/V/D resolved
- C. diff neg
- Stool cx negative
# Elevated transaminases trending down
- no Rivera sign
- Abd US unremarkable
#Additional Past Medical History:
Diabetes mellitus
Peripheral neuropathy
Hypertension
CAD status post CABG x 4
PAD
BPH
Depression
Ambulatory dysfunction since fall 05/2023
hx penile implant
Right total knee replacement
L3-L5 fusion
Cervical fusion
Chief Complaint
-: UTI
Subjective / Review of Systems
Feeling better. Going back to [facility].
Vital Signs / Physical Exam
Vital Signs
Vital Signs
Temp Pulse Resp BP Pulse Ox
98.3 F 82 17 149/78 96
10/22/23 07:00 10/22/23 07:00 10/22/23 07:00 10/22/23 07:00 10/22/23 07:00
Physical Exam
Constitutional: No Acute Distress and Comfortable
Gastrointestinal: Soft, Non Tender and Non Distended
Genito-Urinary: Negative CVA Tenderness
Neurological: AO x 3
Objective Data
Lab Data
Lab Results
10/20/23 07:58
10/22/23 06:17
PT 16.7 Sec (11.4-14.6) H 10/16/23 19:09
INR 1.37 10/16/23 19:09
Estimated Creat Clear 71 ml/min 10/22/23 06:17
Total Bilirubin 0.5 mg/dl (0.2-1.3) 10/22/23 06:17
AST 147 U/L (17-59) H 10/22/23 06:17
ALT 183 U/L (0-50) H 10/22/23 06:17
Alkaline Phosphatase 138 U/L (38-126) H 10/22/23 06:17
Most recent labs reviewed.
Micro Results:
10/16/23 20:22 Blood Culture - Preliminary
Blood/Venous Staphylococcus epidermidis
Staphylococcus epidermidis#2
Gram Stain - Preliminary
10/18/23 12:18 Blood Culture - Preliminary
Blood/Venous No Growth in 72 hours- Final report to follow
10/18/23 11:28 Blood Culture - Preliminary
Blood/Venous No Growth in 72 hours- Final report to follow
10/16/23 20:22 Blood Culture - Preliminary
Blood/Venous Staphylococcus epidermidis
Gram Stain - Preliminary
10/17/23 05:05 Salmonella/Shigella Culture - Final
Feces/Stool No Salmonella, Shigella, Aeromonas or Plesiomonas species
isolated.
Campylobacter Culture - Final
No Campylobacter species isolated.
Shiga Toxin Test - Final
No E. coli Shiga Toxin 1 or 2 detected.
10/16/23 20:23 Urine Culture - Final
Urine Escherichia coli
Klebsiella pneumoniae
10/17/23 05:05 C. difficile GDH Antigen & Toxins - Final
Feces/Stool Negative for toxigenic C.difficile
- Final
Negative for Norovirus GI and GII.
10/16/23 CXR: No acute disease of the chest.
10/17/23 Knee XRAY: No fracture or dislocation. Status post total knee replacement on the right. Anatomic alignment. Small joint effusion. Moderate degenerative joint disease of the left knee.
10/18/23 ABD US: The liver is normal in size, measuring 13.2 cm in length. It is normal in echogenicity. There is no focal hepatic lesion or intrahepatic biliary dilation. The gallbladder is physiologically distended with fluid and shows no shadowing
calculi or wall thickening. The common duct is normal, measuring 3 mm. The pancreas is nonvisualized. The spleen is normal in size and shows no focal abnormality. Survey evaluation of the kidneys shows no hydronephrosis. No free fluid is seen in
the abdomen. The proximal IVC and abdominal aorta are unremarkable. There is a tiny right pleural effusion. There is a small left pleural effusion.
--- NOTE | 2023-10-22 09:57 | CM ---
Addendum entered by Nelly Desai 10/22/23 10:47:
Transport @1200
Minda at [facility] made aware
Armond Jasso aware
Original Note:
Case Management following for d/c planning
Pt for SNF at [facility]
Authorization submitted to [facility] and Approved via [employer];
Residential approved from 10/21 thru 11/03/2023; NRD 11/02
AUTH # [id number]
Spoke with Minda at [facility] - given auth information
Plan - [facility] SNF
R - [phone]
- [phone]
--- NOTE | 2023-10-22 10:09 | W.PN.HOSP.TC ---
Today's Communication/Plan
-
dc to SNF
Assessment / Plan
Assessment / Plan
Assessment:
Hypotension
Dehydration with PEMA
- felt secondary to acute gastroenteritis
- BP improved with IVF
- Cr improved with IVF
acute gastroenteritis
- stool studies NGTD
- tolerating reg diet
EKG changes likely secondary to hypotension in the setting of underlying CAD
History of CAD status post quadruple bypass in 2003
- No chest pain
- Initial EKG showed ST elevations in leads II, 3, aVF with some improvement with IV fluids
- trops slightly detectable but not up-trending
- Echo: EF 60%, mild LVH, mild to mod MR, mild TR
- obtain records from [facility]
- continue Coreg/ASA
- hold statin due to high LFTs
- DCA Cards signed off
Glans penis with 2 superficial ulcers from recent condom cath placement by family
- continue topical zinc gel for now; f/u Urology and wound care recs
Complicated E. Coli and Klebsiella UTI in male with recent condom cath usage
History of neurogenic bladder secondary to diabetes
- BS/SC protocol
- continue Flomax, double dose
- continue Cefuroxime BID through 10/28. Follow ID and Urology recs
Bacteremia
- in 2 initial bottles, staph epi, CoNS, likely dual contaminant, repeat cultures negative
- now off Vanco per ID
Transaminitis, acute vs chronic
- trend LFTs, most likely related to shock liver in setting of hypotension. LFTs are improving.
- hold Statin
- US Abdomen without acute pathology
Peripheral vascular disease
- continue cilostazol
Essential hypertension
- continue lisinopril, increase to 10mg daily
- continue coreg
GERD
- continue Protonix
Type 2 diabetes
- continue NovoLog 70�30, 22 units twice daily
- insulin sliding scale
- diabetic diet
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
HLD
- hold colesevelam
- hold statin due to high LFTs
Diabetic neuropathy
- continue gabapentin
Depression
Hx of Fall 3 months ago with resultant ambulatory dysfunction
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 A faint area of lucency in the midportion of the glenoid
on the right may represent a nondisplaced fracture.
- Shoulder CT without fracture
- Hip Xray: Degenerative joint disease with mild joint narrowing. No fracture or dislocation on either side.
- Knee Xray: Status post total knee replacement on the right. Anatomic alignment. Small joint effusion. Moderate degenerative joint disease of the left knee.
- L spine Xray: Moderate degenerative disk and joint disease in the lumbar spine. Scoliosis. Status post fusion L3-L5.
- PT/OT - SNF recommended
Hx of prostate cancer s/p XRT and IPP Placement ([place])
- PSA normal
Hypokalemia - replete prn
DVT ppx: SC heparin
Code: Full
More than 30 minutes spent in discharge including
Final examination of the patient
Summarizing hospital stay
Instructions for continuing care to all relevant caregivers
Preparation of discharge records, prescriptions, and referral forms
Total time spent (in minutes): 42
Anticipated Discharge: Today
Subjective/Interval History
-
Date of Service: October 22, 2023
no new complaints
Objective Data
-
Labs:
Laboratory Results
10/22/23
06:17
Sodium 141
Potassium 3.7
Chloride 114 H
Carbon Dioxide 24
BUN 10
Creatinine 0.7
Glucose 109 H
Calcium 8.0 L
Total Bilirubin 0.5
AST 147 H
ALT 183 H
Alkaline Phosphatase 138 H
Vital Signs:
Vital Signs
Temp Pulse Resp BP Pulse Ox
98.3 F 82 17 149/78 96
10/22/23 07:00 10/22/23 07:00 10/22/23 07:00 10/22/23 07:00 10/22/23 07:00
I&O
10/21/23 10/22/23 10/23/23
06:59 06:59 06:59
Intake Total 960 / 960 810 / 810
Output Total 550 / 550 1125 / 1125
Balance 410 / 410 -315 / -315
Physical Exam
-
General: No Apparent Distress
HEENT: Normocephalic and Atraumatic
Respiratory: Negative Wheezes
Cardiac: Regular Rhythm and S1/S2
GI: Soft
Genito-urinary: No Costovertebral Tender
Musculoskeletal: No Edema
Neuro: AO x 3
Psych: Calm
Data Reviewed
-
Total Time Spent with Patient (in minutes): 42
Labs: Labs Reviewed by me
--- NOTE | 2023-10-22 10:14 | W.DS.TRANS ---
DC Summary - [employer]
-
Discharge Instructions:
Discharge Diagnosis/Procedures penile lesions from condom cath. UTI, PEMA,
dehydration, acute gastroenteritis, bacteremia
but contaminant
Diet Diabetic, Carb Controlled
Activity As tolerated
Bathing Restrictions None
Other Services OT,PT
Instructions:
Stand-Alone Forms:
Changes to Home Medications: No
Discharge Medications:
DC Medications w/original date entered in [facility]
acetaminophen 325 mg tablet 650 mg PO Q4H PRN mild pain/temp>100f 10/16/23
aspirin 81 mg capsule 81 mg PO DAILY Blood Clot Prevention/Tx 10/16/23
xhqurfb-rqidljwwhkfhk-uwquglow 250 mg-250 mg-65 mg tablet (Excedrin Extra Strength) 2 tab PO Q6H PRN mild pain 10/16/23
atorvastatin 80 mg tablet 80 mg PO HS High Cholesterol 10/16/23
bisacodyl 10 mg rectal suppository (Dulcolax (bisacodyl)) 10 mg GA DAILY PRN if mom is ineffective after 24hrs 10/16/23
carvedilol 12.5 mg tablet 12.5 mg PO BID Heart Disease/Condition 10/16/23
cilostazol 100 mg tablet 100 mg PO BID Blood Clot Prevention/Tx 10/16/23
colesevelam 625 mg tablet 1,875 mg PO BID High Cholesterol 10/16/23
gabapentin 600 mg tablet 600 mg PO BID Neurological Condition 10/16/23
insulin aspar prot-insulin aspart 100 unit/mL (70-30) subcutaneous pen (Novolog Mix 70-30FlexPen U-100) 22 unit SC BID Diabetes 10/16/23
magnesium hydroxide 400 mg/5 mL oral suspension (Milk of Magnesia) 30 ml PO DAILY PRN if no bm in 3 days 10/16/23
pantoprazole 40 mg tablet,delayed release 40 mg PO DAILY Gastrointestinal Issue 10/16/23
sodium phosphates 19 gram-7 gram/118 mL enema (Fleet Enema) 118 ml GA DAILY PRN if dulcolax is ineffective after 24hrs 10/16/23
cefuroxime axetil 500 mg tablet 500 mg PO BID 8 days #16 tabs 10/21/23
lisinopril 10 mg tablet 10 mg PO DAILY #30 tabs 10/21/23
tamsulosin 0.4 mg capsule 0.8 mg (2 x 0.4 mg) PO DAILY #60 caps 10/21/23
zinc oxide 20 % topical ointment 1 applic topical TID #30 grams 10/21/23
Home Medication Changes
Pending Results: No
Total time spent discharging patient (in min): 42
--- NOTE | 2023-10-22 10:16 | W.DS.TRANS ---
DC Summary - [employer] [address] Reporter
-
Discharge Instructions:
Discharge Diagnosis/Procedures penile lesions from condom cath. UTI, PEMA,
dehydration, acute gastroenteritis, bacteremia
but contaminant
Diet Diabetic, Carb Controlled
Activity As tolerated
Bathing Restrictions None
Other Services OT,PT
Instructions:
Stand-Alone Forms:
Changes to Home Medications: No
Discharge Medications:
DC Medications w/original date entered in [facility]
acetaminophen 325 mg tablet 650 mg PO Q4H PRN mild pain/temp>100f 10/16/23
aspirin 81 mg capsule 81 mg PO DAILY Blood Clot Prevention/Tx 10/16/23
otnbxyj-nddkbhimacjdp-fbmvoweo 250 mg-250 mg-65 mg tablet (Excedrin Extra Strength) 2 tab PO Q6H PRN mild pain 10/16/23
atorvastatin 80 mg tablet 80 mg PO HS High Cholesterol 10/16/23
bisacodyl 10 mg rectal suppository (Dulcolax (bisacodyl)) 10 mg SD DAILY PRN if mom is ineffective after 24hrs 10/16/23
carvedilol 12.5 mg tablet 12.5 mg PO BID Heart Disease/Condition 10/16/23
cilostazol 100 mg tablet 100 mg PO BID Blood Clot Prevention/Tx 10/16/23
colesevelam 625 mg tablet 1,875 mg PO BID High Cholesterol 10/16/23
gabapentin 600 mg tablet 600 mg PO BID Neurological Condition 10/16/23
insulin aspar prot-insulin aspart 100 unit/mL (70-30) subcutaneous pen (Novolog Mix 70-30FlexPen U-100) 22 unit SC BID Diabetes 10/16/23
magnesium hydroxide 400 mg/5 mL oral suspension (Milk of Magnesia) 30 ml PO DAILY PRN if no bm in 3 days 10/16/23
pantoprazole 40 mg tablet,delayed release 40 mg PO DAILY Gastrointestinal Issue 10/16/23
sodium phosphates 19 gram-7 gram/118 mL enema (Fleet Enema) 118 ml SD DAILY PRN if dulcolax is ineffective after 24hrs 10/16/23
cefuroxime axetil 500 mg tablet 500 mg PO BID 8 days #16 tabs 10/21/23
lisinopril 10 mg tablet 10 mg PO DAILY #30 tabs 10/21/23
tamsulosin 0.4 mg capsule 0.8 mg (2 x 0.4 mg) PO DAILY #60 caps 10/21/23
zinc oxide 20 % topical ointment 1 applic topical TID #30 grams 10/21/23
Home Medication Changes
Pending Results: No
Total time spent discharging patient (in min): 42
[2023-10-22 11:21] VITALS: BP 146/64
[2023-10-22 11:38] LABS: Glucose - Point of Care 240 mg/dl (70-99)
== END 2023-10-22 12:00 | DRG 690 ==
LOC: 3 WEST ACU 20:15
PROVIDERS: ADMITTING PHYSICIAN Hospitalist; ATTENDING PHYSICIAN Internal Medicine; CONSULT PHYSICIAN Specialist; EMERGENCY PHYSICIAN Emergency Medicine; FAMILY PHYSICIAN Internal Medicine; OTHER PHYSICIAN Internal Medicine Cardiovascular Disease; OTHER PHYSICIAN Internal Medicine Infectious Disease
DX: N39.0 Urinary tract infection, site not specified (principal); N17.9 Acute kidney failure, unspecified; R78.81 Bacteremia; K52.9 Noninfective gastroenteritis and colitis, unspecified; E11.51 Type 2 diabetes mellitus with diabetic peripheral angiopathy without gangrene; E11.42 Type 2 diabetes mellitus with diabetic polyneuropathy; I25.10 Atherosclerotic heart disease of native coronary artery without angina pectoris; K21.9 Gastro-esophageal reflux disease without esophagitis; I10 Essential (primary) hypertension; I95.89 Other hypotension; N31.8 Other neuromuscular dysfunction of bladder; E78.5 Hyperlipidemia, unspecified; E86.0 Dehydration; E87.6 Hypokalemia; T65.811A Toxic effect of latex, accidental (unintentional), initial encounter; N48.5 Ulcer of penis; M15.9 Polyosteoarthritis, unspecified; R74.01 Elevation of levels of liver transaminase levels; B95.7 Other staphylococcus as the cause of diseases classified elsewhere; B96.1 Klebsiella pneumoniae [K. pneumoniae] as the cause of diseases classified elsewhere; B96.20 Unspecified Escherichia coli [E. coli] as the cause of diseases classified elsewhere; R26.89 Other abnormalities of gait and mobility; F32.A Depression, unspecified; I25.2 Old myocardial infarction; Z88.0 Allergy status to penicillin; Z99.3 Dependence on wheelchair; Z95.1 Presence of aortocoronary bypass graft; Z79.82 Long term (current) use of aspirin; Z79.4 Long term (current) use of insulin; Z91.81 History of falling; Z85.46 Personal history of malignant neoplasm of prostate; Z96.0 Presence of urogenital implants; Z79.899 Other long term (current) drug therapy
CPT/HCPCS: 71045; 72110; 73030; 73200; 73502; 73564; 76700; 80053; 81003; 81015; 82962; 83036; 84153; 84484; 85025; 85027; 85610; 87040; 87045; 87046; 87077; 87086; 87147; 87149; 87186; 87205; 87324; 87427; 87449; 87798; 93005; 93306; 97163; 97167; 99291

== ENCOUNTER 2023-10-23 01:05 | Emergency (ER) | payer OTHER, SELFPAY ==
[2023-10-23] VITALS (20 sets, daily range): BP systolic 82–160; BP diastolic 43–83
[2023-10-23 02:08] LABS: % Basophils 0.3 % (0-2); % Immature Granulocytes 0.8 % (0-0.5); % Lymphocytes 14.9 % (20.5-51.1); % Monocytes 6.9 % (1.7-9.3); % Neutrophils 76.1 % (42.2-75.2); Absolute Eosinophils 0.1 10^3/uL (0-0.7); Absolute Immature Granulocytes 0.1 10^3/uL (0-0.05); Absolute Lymphocytes 1.1 10^3/uL (1.2-3.4); Absolute Monocytes 0.5 10^3/uL (0.1-0.6); Absolute Neutrophils 5.8 10^3/uL (1.4-6.5); Hematocrit 32.6 % (39.0-52.0); Mean Corp Hgb Conc. 33.7 g/dL (33.0-37.0); Mean Corpuscular Hgb 26.4 pg (27.0-31.0); Mean Corpuscular Volume 78.4 fL (80.0-94.0); Mean Platelet Volume 9.2 fL (7.4-10.4); Nucleated Red Blood Cells % 0 % (-); Platelet Count 370 10^3/uL (130-400); Red Blood Cell Count 4.16 10^6/uL (4.70-6.10); White Blood Cell Count 7.7 10^3/uL (4.8-10.8)
[2023-10-23 02:08] LABS: Glucose - Point of Care 162 mg/dl (70-99)
[2023-10-23 02:20] LABS: ALT (SGPT) 173 U/L (0-50); AST (SGOT) 130 U/L (17-59); Albumin 3.2 g/dl (3.5-5.0); Alkaline Phosphatase 158 U/L (38-126); Blood Urea Nitrogen 12 mg/dl (9-20); Calcium 8.8 mg/dl (8.4-10.2); Carbon Dioxide 21 mmol/L (22-30); Chloride 114 mmol/L (98-107); Glucose 148 mg/dl (70-99); Lipase 115 U/L (23-300); Potassium 3.3 mmol/L (3.5-5.1); Sodium 142 mmol/L (135-145); Total Bilirubin 0.7 mg/dl (0.2-1.3); eGFR > 60.00
[2023-10-23] MEDS: NSS 1000 IV (02:28)
[2023-10-23] MEDS: ZOFRAN 4 MG IV (02:28)
[2023-10-23] MEDS: DUONEB 3 ML INH (04:32)
--- NOTE | 2023-10-23 06:01 | ED.GENMED ---
Addendum entered and electronically signed by Raciel Parish PA-C 10/26/23 07:06:
Blood culture demonstrates 1 of 2 tubes showing coagulase-negative Staphylococcus. The other tube is negative. This is a preliminary result. Likely contaminant. Final cultures pending
Original Note:
History of Present Illness
General
Chief Complaint: Abdominal Symptoms
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
Exam Limitations: none
Time Seen by Provider: 10/23/23 02:10
Nursing documentation reviewed up to this point in time: agreed with
History of Present Illness
History of Present Illness:
This is an 87-year-old gentleman, resident of a local intermediate with history of CAD, insulin-dependent diabetes, peripheral vascular disease who was recently hospitalized October 15 until yesterday October 21 for treatment of acute gastroenteritis when
he presented with nausea/vomiting, diarrhea. He was found to have acute kidney injury requiring IV fluids. Stool cultures were negative. He was treated for UTI. He was noted to have superficial lesions on his penis related to chronic condom
catheter use. Condom catheter was discontinued. Moderately elevated LFTs thought to be shock liver from hypotension. Ultrasound was negative. Blood cultures were positive but thought to be contaminant. There was report of a fall and he
underwent x-rays of his shoulders, hips, knees and lumbar spine showing arthritis. He has history of diabetic neuropathy maintained on gabapentin.
He returns to the ER tonight after waking up tonight with complaints of nausea and recurrent vomiting. He continues with some nausea and vomited a small amount of yellowish liquid upon arrival to the ED. He denies abdominal pain, he has had no
recurrent diarrhea. He does admit to a hacking dry cough that began about 2 days ago. He denies chest pain nor shortness of breath. He has not had a fever.
Past History
Past History
ED Past Medical History: CAD, GERD, HTN, IDDM, VA and Psychiatric (depression)
ED Past Surgical History: Cardiac (quadruple bypass 2003 at [facility])
Social History
Tobacco: Non-smoker
Alcohol: None
Living: intermediate
Phy Exam
Physical Exam
Physical Exam:
GENERAL: 87-year-old gentleman appears his stated age, appears somewhat chronically debilitated, bedbound. Awake and alert and oriented x 3. Easily communicative. Rare brief dry cough is noted otherwise respirations are easy nonlabored.
EYE: anicteric
NECK: Supple, nontender, no meningismus, no significant adenopathy.
ENT: oral mucosa is moist. No rhinorrhea.
CARDIAC: Regular rate and rhythm. 2/6 holosystolic murmur at left sternal border.
LUNGS: Clear breath sounds bilaterally, no acute respiratory distress, no wheezes/rales/rhonchi
ABDOMEN: Rotund, soft, nondistended, without focal tenderness, no r/g, normoactive BS.
NEUROLOGICAL: Alert and oriented x3, no focal neuro deficits.
SKIN: Warm and dry, normal color, skin intact. No rash.
MUSCULOSKELETAL: No C/C/E. peripheral pulses are full and equal b/l. No palpable tenderness.
PSYCH: Normal and appropriate interaction.
Course
Orders/Labs/Results
Orders:
Orders
10/23/23 01:34
IV Insert/Care/Rem.- Treatment PRN
Urinalysis Reflex To Culture Urgent
Date Specimen was Collected: 10/23/23
Time Specimen was Collected: 01:34
10/23/23 01:46
EKG [Electrocardiogram (*1)] Urgent
Reason for Study: Fatigue / Weakness
EKG- Treatment ONCE
10/23/23 02:01
Complete Blood Count/With Diff Urgent
10/23/23 02:02
Comprehensive Metabolic Panel Urgent
Lipase Urgent
10/23/23 02:22
Blood Culture Q30M
[facility] Source: Blood/Venous
Specimen Description:
Comment: FROM 2 SEPARATE SITES
10/23/23 02:23
0.9% Sodium Chloride 1000 ml [Nss] 1,000 ml IV BOLUS
Ondansetron Injectable [Zofran] 4 mg IV NOW STA
10/23/23 02:26
Lactic Acid Urgent
10/23/23 03:03
Chest [CR Chest - 2 Views ] Urgent
Comment:
Reason For Exam: vomiting, cough
10/23/23 03:44
Blood Culture Q30M
[facility] Source: Blood/Venous
Specimen Description:
Comment: FROM 2 SEPARATE SITES
10/23/23 03:51
Ipratropium/Albuterol Sulfate [Duoneb] 3 ml INH R NOW STA
10/23/23 05:58
Guaifenesin [Mucinex] 1,200 mg PO NOW STA
10/23/23 06:24
Guaifenesin [Mucinex] 600 mg .ROUTE .STK-MED ONE
10/23/23 06:33
Troponin I Urgent
10/23/23 09:06
Acetaminophen [Tylenol] 650 mg .ROUTE .STK-MED ONE
10/23/23 09:10
Acetaminophen [Tylenol] 650 mg PO NOW STA
Abnormal Lab Results
10/23/23 10/23/23 10/23/23
02:01 02:02 02:04
RBC 4.16 L 10^6/uL
(4.70-6.10)
Hgb 11.0 L g/dL
(13.0-18.0)
Hct 32.6 L %
(39.0-52.0)
MCV 78.4 L fL
(80.0-94.0)
MCH 26.4 L pg
(27.0-31.0)
RDW 16.0 H %
(11.5-14.5)
Abs Immat Gran (auto) 0.1 H 10^3/uL
(0-0.05)
Absolute Lymphs (auto) 1.1 L 10^3/uL
(1.2-3.4)
Immature Gran % 0.8 H %
(0-0.5)
Neutrophils % 76.1 H %
(42.2-75.2)
Lymphocytes % 14.9 L %
(20.5-51.1)
Potassium 3.3 L mmol/L
(3.5-5.1)
Chloride 114 H mmol/L
(98-107)
Carbon Dioxide 21 L mmol/L
(22-30)
Glucose 148 H mg/dl
(70-99)
AST 130 H U/L
(17-59)
ALT 173 H U/L
(0-50)
Alkaline Phosphatase 158 H U/L
(38-126)
Albumin 3.2 L g/dl
(3.5-5.0)
POC Glucose 162 H mg/dl
(70-99)
10/23/23
08:23
RBC
Hgb
Hct
MCV
MCH
RDW
Abs Immat Gran (auto)
Absolute Lymphs (auto)
Immature Gran %
Neutrophils %
Lymphocytes %
Potassium
Chloride
Carbon Dioxide
Glucose
AST
ALT
Alkaline Phosphatase
Albumin
POC Glucose 178 H mg/dl
(70-99)
10/23/23 02:01
10/23/23 02:02
Vital Signs
Initial and Last Documented VS:
Initial Vital Signs
Temp Pulse Resp BP Pulse Ox
98.8 F 79 26 92/45 95
10/23/23 01:24 10/23/23 01:24 10/23/23 01:24 10/23/23 01:24 10/23/23 01:24
Last Documented Vital Signs
Temp Pulse Resp BP Pulse Ox
99.8 F 87 11 160/59 99
10/23/23 09:10 10/23/23 08:00 10/23/23 08:00 10/23/23 08:00 10/23/23 08:00
MDM/Problems Addressed
Differential Diagnosis Includes:
Concern for recurrent gastroenteritis, GERD, gastroparesis, bronchitis, aspiration pneumonia, less likely ACS.
Mild hypotension noted initially. Concern for sepsis syndrome.
Will give Zofran for nausea and initiate IV fluids. Will check labs, blood cultures, lactic acid chest x-ray, EKG.
Will consider imaging depending on results and clinical course.
Chronic conditions affecting care: DM, HTN, CAD, Neurological disorder and Kidney disease
*Radiology
Radiology exam reviewed: preliminary read by ED provider (Chest x-ray is unremarkable. Clear lung isaac. Normal heart size.)
*Pulse Oximetry
Patient hypoxic: no
*EKG
Interpreted by ED Provider?: Yes
Comparison EKG: no changes (Unchanged from previous October 16, 2023 save for flipped T waves in V2 is new. Borderline elevated ST segment inferiorly similar and unchanged.)
Rate: normal
Rhythm: sinus
[place]: normal axis
Interval: normal interval
QRS Pattern: normal QRS
Ischemia: non-specific ST changes
*Can Doffer Interpretation
Rate: normal
Rhythm: sinus
*Critical Care Note
Total Time (30-74mins, 75-104mins- exclusive of procedures): Not Applicable
Update Note
Update Note:
Patient reports no further nausea after IV Zofran but continues with an intermittent cough.
Mild hypotension responded promptly with IV fluids.
No recurrent episodes of hypotension, no recurrent nausea. He remains afebrile.
Thus far no improvement in cough after DuoNeb nebulizer.
Overall continues to appear comfortable, normal pulse ox and remains afebrile.
Labs are unremarkable, reassuring with normal white blood cell count, mild but stable anemia. Mildly elevated LFTs but improving from previous. Random glucose 148. Normal lactic acid.
EKG shows flipped T waves in V2 that is new compared to previous otherwise similar and unchanged.
Chest x-ray shows clear lung isaac.
Will trial a dose of Mucinex and oral fluids and continue to observe. If no further nausea, we will plan to discharge back to intermediate for continued care.
ED Attending Note
-
Portions of this chart may have been created with voice recognition software.� Occasional wrong word or��sound alike� substitutions may have occurred due to the inherent limitations of voice recognition software.
Discharge Plan
Departure
Patient Disposition: Assisted/SNF
Date of Disposition: 10/23/23
Time of Disposition: 07:21
Patient with high blood pressure during this ER visit?: No
Condition: Good
Discharge Problem:
acute nausea and vomiting, Acute bronchitis
Instructions: Acute bronchitis, Nausea and Vomiting, Adult (DC)
Prescriptions:
New
guaifenesin [Mucinex] 1,200 mg tablet extended release 12hr
1,200 mg PO BIDPRN PRN (Reason: Cough) Qty: 20 0RF
No Action
cilostazol 100 mg tablet
100 mg PO BID
atorvastatin 80 mg Tablet
80 mg PO HS
acetaminophen 325 mg Tablet
650 mg PO Q4H PRN (Reason: mild pain/temp>100f)
gabapentin 600 mg Tablet
600 mg PO BID
carvedilol 12.5 mg tablet
12.5 mg PO BID
magnesium hydroxide [Milk of Magnesia] 400 mg/5 mL Suspension
30 ml PO DAILY PRN (Reason: if no bm in 3 days)
colesevelam 625 mg tablet
1,875 mg PO BID
bisacodyl [Dulcolax (bisacodyl)] 10 mg Suppository
10 mg NC DAILY PRN (Reason: if mom is ineffective after 24hrs)
pantoprazole 40 mg tablet,delayed release (DR/EC)
40 mg PO DAILY
Fleet Enema 19-7 gram/118 mL Enema
118 ml NC DAILY PRN (Reason: if dulcolax is ineffective after 24hrs)
Excedrin Extra Strength 250-250-65 mg Tablet
2 tab PO Q6H PRN (Reason: mild pain)
insulin asp prt-insulin aspart [Novolog Mix 70-30FlexPen U-100] 100 unit/mL (70-30) insulin pen
22 unit SC BID
Patient Comments:
10/16/2023' 'before breakfast and before dinner'
aspirin 81 mg Capsule
81 mg PO DAILY
zinc oxide 20 % Ointment
1 applic topical TID Qty: 30 0RF
tamsulosin 0.4 mg Capsule
0.8 mg PO DAILY Qty: 60 0RF
lisinopril 10 mg Tablet
10 mg PO DAILY Qty: 30 0RF
cefuroxime axetil 500 mg Tablet
500 mg PO BID 8 Days Qty: 16 0RF
Referrals:
Antonino Dodson I., DO [Family Provider] - Call in 1-3 days for appt
Interventions
Interventions:
*Risk Screen - Suicide Last Done: 10/23/23 01:24
*General Assessment Last Done: 10/23/23 01:24
ED- Fall Risk Assessment Last Done: 10/23/23 02:09
*ED COVID-19 Vaccine History Last Done: 10/23/23 01:24
HA-Wuqcns-Cvrpjnvbgw Assessment Last Done: 10/23/23 07:24
Discharge Date and Time
Print Language: WELSH
[2023-10-23] MEDS: MUCINEX 1200 MG PO (06:23)
[2023-10-23 07:09] LABS: Troponin I < 0.012 ng/ml
[2023-10-23 08:25] LABS: Glucose - Point of Care 178 mg/dl (70-99)
[2023-10-23] MEDS: TYLENOL 650 MG PO (09:10)
== END 2023-10-23 12:35 ==
LOC: EMR 01:05
PROVIDERS: EMERGENCY PHYSICIAN Emergency Medicine; FAMILY PHYSICIAN Internal Medicine
DX: J20.9 Acute bronchitis, unspecified (principal); R11.2 Nausea with vomiting, unspecified; I10 Essential (primary) hypertension; I25.10 Atherosclerotic heart disease of native coronary artery without angina pectoris; E11.9 Type 2 diabetes mellitus without complications
CPT/HCPCS: 99285; 96374; 96361; 94640; 71046; 80053; 82962; 83605; 83690; 84484; 85025; 87040; 87205; 93005